=== PATIENT | female | born 1945 | race Caucasian/White ===

== ENCOUNTER 2017-05-21 08:26 | Emergency (ER) | payer MEDICARE, OTHER ==
[~2017-05-21] VITALS: Ht 162.6 cm; Wt 72.6 kg
[~2017-05-21 08:26] MED LIST: ALLO100 PO; Adult Low Dose81 MG PO; CEPH500 PO; CHOL10002 PO; CITA20 PO; ERGO50000 PO; FURO40 PO; HYDACE10B PO; LEVSOD125 PO; NAPR500 PO; OLME20 PO; PARI1 PO; ROSU10TA PO
[2017-05-21] MEDS ORDERED: Sudogest60 MG PO (10:40)
[2017-05-21] MEDS ORDERED: Cheratussin AC118 ML PO (10:40)
[2017-05-21] MEDS ORDERED: Augmentin 875-1 EACH PO (10:40)
== END 2017-05-21 10:45 | disposition home or self-care (01) ==
LOC: ER 08:26
DX: J32.9 Chronic sinusitis, unspecified (principal); I10 Essential (primary) hypertension; M10.9 Gout, unspecified; N19 Unspecified kidney failure; Z79.899 Other long term (current) drug therapy; Z79.82 Long term (current) use of aspirin; Z87.891 Personal history of nicotine dependence
CPT/HCPCS: 71046; 99283

== ENCOUNTER 2020-08-14 06:26 | Day surgery (SDC) | payer MEDICARE, OTHER ==
[~2020-08-14] VITALS: Ht 162.6 cm; Wt 76.0 kg
[~2020-08-14 06:26] MED LIST changes: +AMLO5 PO; +Augmentin 875-1 EACH PO; +BUPR100 PO; +CLON.1 PO; +Cheratussin AC118 ML PO; +LEVSOD100 PO; +LOSA50 PO; +ONDA4ODT MM; +PRAV20 PO; +Rena-Vite Tabl0.8 MG PO; +SODBIC650 PO; +Sudogest60 MG PO
[2020-08-14] MEDS ORDERED: Crestor20 MG PO (07:00)
--- NOTE | 2020-08-14 11:12 | NUR ---
DR GREER AT BEDSIDE SPEAKING WITH PT ABOUT POSSIBLE RX FOR PAIN MEDICATION. PT STATES SHE HAS "BORROWED" PAIN MEDICATION IF NEEDED, TOOK TWO HYDROCODONE YESTERDAY AFTER DIALYSIS FOR PAIN. EDUCATED PATIENT ABOUT THE DANGERS OF TAKING MEDICATIONS WITHOUT A PRESCRIPTION OR INSTRUCTIONS FROM HER PROVIDER.
[2020-08-14] MEDS ORDERED: HYDR1TAB94 PO (11:32)
--- NOTE | 2020-08-14 11:45 | NUR ---
IV DC'D, CATH INTACT. PT GIVEN DC INSTRUCTIONS, FOLLOW UP INFO, VERBALIZED UNDERSTANDING. ABDOMEN SITE SOFT, NO BLEEDING OR DRAINAGE. IS VERY TENDER TO THE TOUCH, DR GREER AWARE. PT OUT TO CAR VIA WHEELCHAIR.
[2020-10-10] MEDS ORDERED: Norco 5-325 Ta1 EACH PO (15:31)
== END 2020-08-14 11:45 | disposition home or self-care (01) ==
LOC: MHTC 06:26
DX: I12.0 Hypertensive chronic kidney disease with stage 5 chronic kidney disease or end stage renal disease (principal); N18.6 End stage renal disease; E03.9 Hypothyroidism, unspecified; E55.9 Vitamin D deficiency, unspecified; E78.00 Pure hypercholesterolemia, unspecified; Z87.891 Personal history of nicotine dependence
CPT/HCPCS: 49418; 76937; 93005; 93010; 99152; 99153; C1750; C1769; C1887; C1894; J0690; J1644; J2250; J3010; J7030; J7040; Q9967

== ENCOUNTER 2020-10-24 09:03 | Day surgery (SDC) | payer MEDICARE, OTHER ==
[~2020-10-24] VITALS: Ht 162.6 cm; Wt 75.0 kg
[~2020-10-24 09:03] MED LIST changes: +Crestor20 MG PO; +HYDR1TAB94 PO; +Norco 5-325 Ta1 EACH PO
--- NOTE | 2020-10-24 14:21 | NUR ---
PT GIVEN TWO NORCO'S FOR ABDOMINAL PAIN. DISCHARGE GONE OVER WITH PT, VERBALIZES UNDERSTANDING. SALINE LOCK REMOVED WITH CATHETER INTACT. PT CALLED AND INSTRUCTED PT READY FOR DISCHARGE. PD CATH SITE DRESSED PRIOR TO PT GETTING DRESSED.
--- NOTE | 2020-10-24 14:32 | NUR ---
PT TO PRIVATE VEHICLE PER W/C.
== END 2020-10-24 14:30 | disposition home or self-care (01) ==
LOC: MHTC 09:03
DX: I12.0 Hypertensive chronic kidney disease with stage 5 chronic kidney disease or end stage renal disease (principal); N18.6 End stage renal disease; E03.9 Hypothyroidism, unspecified; Z79.899 Other long term (current) drug therapy
CPT/HCPCS: 36595; 49418; 49422; 99152; 99153; A9270; C1725; C1750; C1769; C1887; C1894; J0690; J1644; J2250; J3010; J7030; J7040; Q9967

== ENCOUNTER 2020-11-08 15:22 | Emergency (ER) | payer MEDICARE, OTHER ==
[~2020-11-08] VITALS: Ht 165.1 cm; Wt 61.2 kg
[2020-11-08 16:12] LABS: BASOPHILS ABSOLUTE AUTO 0.08 K/mm3 (0.00-0.23); BASOPHILS PERCENT AUTO 1 % (0-2); EOSINOPHILS ABSOLUTE AUTO 0.14 K/mm3 (0.00-0.68); EOSINOPHILS PERCENT AUTO 2 % (0-6); IMMATURE GRAN ABSOLUTE AUTO 0.04 K/mm3 (0.00-0.10); IMMATURE GRAN PERCENT AUTO 1 % (0-1); LYMPHOCYTES ABSOLUTE AUTO 1.54 K/mm3 (0.84-5.20); LYMPHOCYTES PERCENT AUTO 19 % (21-46); MONOCYTES ABSOLUTE AUTO 0.42 K/mm3 (0.16-1.47); MONOCYTES PERCENT AUTO 5 % (4-13); Mean Corpuscular HGB 31.5 pg (26.0-34.0); Mean Corpuscular HGB Conc 33.3 g/dL (31.5-36.5); Mean Corpuscular Volume 95 fL (80-100); Mean Platelet Volume 9.6 fL (9.1-12.4); NEUTROPHILS PERCENT AUTO 73 % (41-73); Platelet Count 282 K/mm3 (150-400); RDW Coefficient Variation 12.8 % (11.7-14.2); RDW Standard Deviation 44.2 fL (35.1-46.3); Red Blood Cell Count 3.17 M/mm3 (3.80-5.20); White Blood Cell Count 8.12 K/mm3 (4.00-11.30)
[2020-11-08 16:36] LABS: Albumin, Blood 3.3 g/dL (3.4-5.0); Albumin/Globulin Ratio 0.8 (0.8-1.8); Bilirubin, Total 0.5 mg/dL (0.1-1.0); Bun/Creatinine Ratio 4.8 (12.0-20.0); Calcium, Blood 8.5 mg/dL (8.5-10.1); Creatinine, Blood 2.31 mg/dL (0.40-1.00); Globulin, Blood 4.1 g/dL (2.2-4.0); Phosphorus, Blood 1.3 mg/dL (2.5-4.9); Potassium, Blood 3.5 mmol/L (3.5-5.5); Total Protein, Blood 7.4 g/dL (6.4-8.2)
== END 2020-11-08 19:29 | disposition home or self-care (01) ==
LOC: ER 15:22
PROVIDERS: Emergency Medicine
DX: R41.0 Disorientation, unspecified (principal); R53.1 Weakness; I10 Essential (primary) hypertension; Z53.21 Procedure and treatment not carried out due to patient leaving prior to being seen by health care provider; Z79.899 Other long term (current) drug therapy
CPT/HCPCS: 70450; 73120; 80053; 83735; 84100; 85025; 93005; 93010; 96374; 99285-25; J2060

== ENCOUNTER 2021-11-10 11:16 | Inpatient (IN) | payer MEDICARE, OTHER ==
[~2021-11-10] VITALS: Ht 162.6 cm; Wt 71.2 kg
[~2021-11-10 11:16] MED LIST changes: -CHOL10002 PO; -Crestor20 MG PO; +VITAMIN D31000 UNI1 PO
[2021-11-10 12:04] LABS: BASOPHILS ABSOLUTE AUTO 0.06 K/mm3 (0.00-0.23); BASOPHILS PERCENT AUTO 1 % (0-2); EOSINOPHILS ABSOLUTE AUTO 0.16 K/mm3 (0.00-0.68); EOSINOPHILS PERCENT AUTO 3 % (0-6); Hematocrit 35.1 % (33.0-51.0); Hemoglobin 11.5 g/dL (11.5-16.0); IMMATURE GRAN ABSOLUTE AUTO 0.04 K/mm3 (0.00-0.10); IMMATURE GRAN PERCENT AUTO 1 % (0-1); LYMPHOCYTES PERCENT AUTO 32 % (21-46); MONOCYTES ABSOLUTE AUTO 0.43 K/mm3 (0.16-1.47); MONOCYTES PERCENT AUTO 7 % (4-13); Mean Corpuscular HGB Conc 32.8 g/dL (31.5-36.5); Mean Corpuscular Volume 95 fL (80-100); Mean Platelet Volume 9.8 fL (9.1-12.4); NEUTROPHILS ABSOLUTE AUTO 3.57 K/mm3 (1.96-9.15); NEUTROPHILS PERCENT AUTO 57 % (41-73); Platelet Count 346 K/mm3 (150-400); RDW Coefficient Variation 13.3 % (11.7-14.2); Red Blood Cell Count 3.71 M/mm3 (3.80-5.20); White Blood Cell Count 6.26 K/mm3 (4.00-11.30)
[2021-11-10 12:35] LABS: Albumin, Blood 3.1 g/dL (3.4-5.0); Albumin/Globulin Ratio 0.8 (0.8-1.8); Bilirubin, Total 0.3 mg/dL (0.1-1.0); Bun/Creatinine Ratio 6.3 (12.0-20.0); Calcium, Blood 12.9 mg/dL (8.5-10.1); Creatinine, Blood 8.79 mg/dL (0.40-1.00); Globulin, Blood 4.1 g/dL (2.2-4.0); Potassium, Blood 3.6 mmol/L (3.5-5.5); Total Protein, Blood 7.2 g/dL (6.4-8.2)
[2021-11-10] MEDS ORDERED: PROZAC20 M9 PO (12:47)
[2021-11-10] MEDS ORDERED: DIAZEPAM2 M2 PO (12:48)
[2021-11-10] MEDS ORDERED: TEMAZEPAM PO (12:50)
[2021-11-10] MEDS ORDERED: LOSARTAN POTASS25 M2 PO (12:51)
[2021-11-10] MEDS ORDERED: KLOR-CON 1010 ME8 PO (12:51)
--- NOTE | 2021-11-10 15:02 | NUR ---
DIALYSIS NURSE PLATE KEEPER TO ED TO OBTAIN PD EFFLUENT SAMPLE. RN UNABLE TO OBTAIN EFFLUENT SAMPLE DUE TO PT PRESENTING WITH DRY BELLY. MANUAL EXCHANGE COMPLETED WITH 1000ML OF 1.5% DIANEAL PER MD ORDER AND DWELL TIME OF 1HR AND 15MINUTES. EFFLUENT SAMPLE COLLECTED, EFFLUENT CLEAR IN APPEARANCE, PT DID C/O OF MODERATE LOWER ABDOMINAL/ PELVIC PAIN AND TOLERATED PROCEDURE WELL OVERALL. SAMPLE SENT FOR CELL COUNT AND DIFFERENTIAL. RESULTS PENDING AND WILL BE REPORTED TO DR. MONTANA BY ED DIRECTLY.
[2021-11-10 15:08] LABS: Automated BF WBC Count 0.003 K/mm3 (0-999); Body Fluid WBC Count 3 /mm3 (0-999)
[2021-11-10 15:26] LABS: Protein, Body Fluid 0.1 g/dL
[2021-11-10 15:41] LABS: Color, Body Fluid No color (None-Yellow); RBC Count, Body Fluid 1 /mm3 (0-0)
[2021-11-10 15:42] LABS: Appearance, Body Fluid Clear (Clear)
[2021-11-10 16:20] LABS: Total Cell Count, Body Fluid 100
--- NOTE | 2021-11-10 19:25 | NUR ---
MS KO WAS ADMITTED TO MEDICAL UNIT FROM ER AROUND 1810HRS. SHE STOOD AND TRANSFERED INTO THE HOSPITAL BED, STEADY ON TRANSFER. MAIN C/O HEADACHE 11/17 ON ARRIVAL AND REQUESTING TYLENOL. DR WHITNEY CALLED AND TYLENOL ORDER OBTAINED. PT GOOD HISTORIAN, BUT SHE WAS NOT 100% SURE OF HER HOME MEDICATIONS, SAID THEY ARE CHANGED FREQUENTLY. SHE SAID SHE USUALLY VOIDS ONCE A DAY, HAS NOT VOIDED SINCE BEING AT [facility] PER REPORT. PT REPORTS 10LB WEIGHT LOSS IN LAST MONTH DUE TO POOR APPETITE. PT SAID SHE HAS A HISTORY OF OCCASIONAL SEIZURES, LAST ONE PERHAPS 6 MONTHS AGO, BUT NOT ON SZ MEDS, NOT CLEAR IF IT IS DIAGNOSED SEIZURES. PERITONEAL DIALYSIS CATHETER IN PLACE, PT NORMALLY DOES HOME PD EACH EVENING. OPTOMECHANICAL TECHNICIAN INFORMED DOCK SUPERVISOR OF PT'S ADMISSION PER REPORT. BED LOW, CALL LIGHT IN REACH.
--- NOTE | 2021-11-10 21:05 | NUR ---
DIALYSIS NOTE CCPD TX INITIATED PER P&P, PT PROGRAMED WITH HOME RX PER DR. MONTANA. 9HRS, 8400 TOTAL VOLUME (2.5% DIANEAL), 4 EXCHANGES OF 2100 WITH A DWELL TIME OF 1HR, 48 MINUTES, 0 LAST FILL. LMQ PD CATH EXIT SITE WNL, NO REDNESS, NO DRAINAGE. PT TOLERATED PROCEDURE WELL. REPORT GIVEN TO BEDSIDE RN AND CONTACT INFO FOR ONCALL PATCHER BOWLING BALL FOR ANY QUESTIONS OR CONCERNS DURING NIGHT.
[2021-11-10] MEDS ORDERED: DIAZEPAM5 M2 PO (22:04)
[2021-11-11 06:16] LABS: Hematocrit 34.7 % (33.0-51.0); Hemoglobin 11.4 g/dL (11.5-16.0)
--- NOTE | 2021-11-11 06:30 | NUR ---
DIALYSIS NOTE CCPD TX COMPLETED AND PT DISCONNECTED PER P&P. PD EFFLUENT CLEAR, I-[id number], TUF-[id number], AVG DWELL 1:16, LOST DWELL 2:07, 3 LOW DRAIN VOLUME ALARMS T/O NIGHT. PT TOLERATED TX WELL AND REPORTS SHE WAS ALBLE TO REST DURING NIGHT.
[2021-11-11 06:35] LABS: Magnesium, Blood 2.4 mg/dL (1.6-2.4)
[2021-11-11 06:40] LABS: Anion Gap 12 mmol/L (6-16); Blood Urea Nitrogen 51 mg/dL (8-24); Bun/Creatinine Ratio 6.3 (12.0-20.0); CO2, Blood 27 mmol/L (21-32); Calcium, Blood 11.8 mg/dL (8.5-10.1); Chloride, Blood 100 mmol/L (98-108); Creatinine, Blood 8.05 mg/dL (0.40-1.00); Glomerular Filtration Rate 5 (60-); Glucose, Blood 114 mg/dL (70-99); Phosphorus, Blood 4.6 mg/dL (2.5-4.9); Potassium, Blood 3.3 mmol/L (3.5-5.5); Sodium, Blood 139 mmol/L (136-145)
--- NOTE | 2021-11-11 07:23 | NUR ---
SHIFT SUMMARY AOX4. DX c HYPERCALCEMIA. PT REPORTS MARTINI, MEDICATED 1X c TYLENOL & STATES MILD RELIEF @HS HOWEVER THIS AM PT REPORTS MARTINI HASNT GONE AWAY, DAY SHIFT NURSE INFORMED. RECIEVED PERITONEAL DIALYSIS T/O NIGHT. 24 HR URINE STARTED 2230. ABD DISTENDED. DENIES N/V. VSS. CALL LIGHT IN REACH.
--- NOTE | 2021-11-11 13:08 | NUR ---
DIALYSIS NOTE CCPD TX INITIATED PER P&P, PT PROGRAMED WITH HOME RX PER DR. MONTANA. 9HRS, 8400 TOTAL VOLUME (2.5% DIANEAL), 4 EXCHANGES OF 2100 WITH A DWELL TIME OF 1HR, 48 MINUTES, 0 LAST FILL. LMQ PD CATH EXIT SITE WNL, NO REDNESS, NO DRAINAGE. PT TOLERATED PROCEDURE WELL. REPORT GIVEN TO BEDSIDE RN AND CONTACT INFO FOR ONCALL IT SECURITY ARCHITECT FOR ANY QUESTIONS OR CONCERNS DURING NIGHT.
--- NOTE | 2021-11-11 20:05 | NUR ---
SUMMARY- PT ALERT AND ORIENTED. ALL DAY SHE STATES SHE DOESN'T FEEL GOOD. HEADACHE NOT RELEIVED BY TYLENOL EARLIER TODAY, INCREASED AMOUNT OF TYLENOL, TURNED OFF ALL THE LIGHTS AND SHUT OUT LIGHT FOR PT TO NAP THIS AFTERNOON. APPEARED TO SLEEP FROM 1330 UNTIL 1730, AWOKEN EASY TO STIM. P. DIALYSIS STARTED 1330 BEFORE RN WENT HOME. PT HAS NO APPETITE AND ONLY HAD A FEW BITES OF FOOD ALL DAY. ENC TO DRINK SMALL AMOUNTS OF FLUIDS CONSISTANTLY. 1800 PT STATES SHE DOESN'T KNOW IF HEADACHE WENT AWAY, STILL IN POSITION, ATTEMPTING SLEEP CONNECTED TO DIALYSIS. VSS. REPORTED TO NOC RN.
[2021-11-11 23:14] LABS: Protein, Urine Quantitative 85.9 mg/dL (0.0-11.9)
--- NOTE | 2021-11-12 02:22 | NUR ---
EMESIS/PAIN *LATE ENTRY* AROUND 2229 PT REPORTED EXTREME HEADACHE & HAD EPISODE 300ML DARK BROWN EMESIS, MEDICATED c 4MG IV ZOFRAN. BY 0000 PT GAGGING/DRY HEAVING & HAVING NAUSEA AGAIN. PT REPORTS INABILITY TO EAT OR TOLERATE MUCH PO INTAKE INCLUDING WATER, 8/10 BURNING MID ABD PAIN, SENSITIVITY TO LIGHT, SHIVERING-HOWEVER AFEBRILE, VSS, 10/10 HEADACHE & HAD ANOTHER EPISODE 300ML CLEAR/YELLOW EMESIS c BROWN SPECKS. INFORMED DR MICHAELS, HE ORDERED REGLAN IV, FENANYL IV & CT ABD/PELVIS. SINCE GIVING REGLAN PT HASNT HAD ANY FURTHER EMESIS JUST DRY HEAVING & GAGGING. MEDICATED c 50MCG FENANYL & PT REPORTED MILD RELIEF FROM ABD & HEAD PAIN, WILL MONITOR.
[2021-11-12 05:56] LABS: Hematocrit 35.4 % (33.0-51.0); Hemoglobin 11.6 g/dL (11.5-16.0)
[2021-11-12 06:19] LABS: Anion Gap 11 mmol/L (6-16); Blood Urea Nitrogen 48 mg/dL (8-24); Bun/Creatinine Ratio 5.6 (12.0-20.0); CO2, Blood 26 mmol/L (21-32); Calcium, Blood 11.1 mg/dL (8.5-10.1); Chloride, Blood 102 mmol/L (98-108); Creatinine, Blood 8.52 mg/dL (0.40-1.00); Glomerular Filtration Rate 4 (60-); Glucose, Blood 102 mg/dL (70-99); Phosphorus, Blood 4.8 mg/dL (2.5-4.9); Potassium, Blood 3.6 mmol/L (3.5-5.5); Sodium, Blood 139 mmol/L (136-145)
--- NOTE | 2021-11-12 06:43 | NUR ---
SHIFT SUMMARY AOX4. VSS. HAD A ROUGH NIGHT, VERY NAUSEATED, DRY HEAVING, GAGGING c 2 EPISODES 300ML EMESIS-1ST EMESIS WAS BROWN IN COLOR & 2ND WAS CLEAR YELLOW c BROWN SPECKS. MEDICATED 1X c ZOFRAN & 1X c REGLAN. REPORTS 8-1010 BURNING ABD PAIN. HYPOACTIVE BT. TENDER, GAURDED MILD DISTENDED ABD. HAS NO APPETITE, CANT TOLERATE PO INTAKE, REPORTS FEELING NAUSEATED EVEN AFTER DRINKIN WATER. ABD/PELVIS CT ORDERED & DONE LAST NIGHT PER DR MICHAELS ORDERS. PT HAS LIGHT SENSITIVITY. 10/10 HEADACHE, UNABLE TO TOLERATE PO, SO DR MICHAELS ORDERED IV FENTANYL & PT FINALLY ABLE TO GET REST. CRITICAL CREATININE @8.45, INFORMED DR MONTANA. CALL LIGHT IN REACH.
--- NOTE | 2021-11-12 07:11 | NUR ---
PATIENT RESTNG QUIETLY UPON ENTERING ROOM THIS MORNING. WAKENS EASILY TO FULL ORIENTATION. OVERNIGHT THERAPY COMPLETE ORDERED. EFFLUENT VERY LIGHT TAYLOR / CLEAR. CYCLER STRIPPED AND CLEANED. PATIENT VERBALIZED NO COMPLAINT AT THIS TIME.
--- NOTE | 2021-11-12 14:59 | NUR ---
PAEIENT AWAKE / ALERT / ORIENTED / MOBILE IN ROOM. OVERNIGHT CCPD SET UP PER ORDERS. CYCLER STRUNG, PRIMED AND PROGRAMMED. MACHINE MONITORED UNTIL PRIME COMPLETE. PT WILL BE CONNECTED AND THERAPY STARTED LATER THIS EVENING. EXIT SITE CARE DONE. NEW STERILE DRESSING APPLIED. SITE DRY, TIGHT, NON-TENDER. PT COMFORTABLE IN BED - VERB NO NEEDS AT THIS TIME.
--- NOTE | 2021-11-12 20:26 | NUR ---
SUMMARY- PT A/O X4. STATES SHE FEELS TERRIBLE- HEADACHE THAT WONT GO AWAY. NO APPETITE AND FOOD IS REPULSIVE TO HER. TAKING IN CLEARS LIQUIDS EARLIER PART OF THE DAY, BUT PO INCREASINGLY INTOLERABLE THE DAY PROGRESSED. BEGAN HAVING EMISIS WITH ANY PO INTAKE. PT STARTED ON NS 100ML HR THIS AM. CHANGED TO NPO EXCEPT ICE. CALLED DR WHITNEY 1800 AND GOT ORDER TO CONT IVF THROUGH THE NIGHT AND OBTAIN ABD XRAY. PT DENIES STOMACH PAIN, DENIES CRAMPING. THOUGHT MAYBE SHE WAS CONSTIPATED, BUT CT DID NOT SHOW IMPACTION. PER. DIALYSIS CONNECTED APPROX 1800. PT IS MORE WEAK AND SHAKI. INSTRUCTED TO CALL ANYTIME SHE GETS UPL.
--- NOTE | 2021-11-13 06:35 | NUR ---
SHIFT SUMMARY PT REPORTS H/A AT THE BEGINNING OF SHIFT. ONE TIME MORPHINE GIVEN, H/A RESOLVED. PT ALSO C/O NAUSEA, DAY SHIFT MEDICATED HER FOR ZOFRAN AND PHENEGRAN BEFORE SHIFT CHANGED WHICH RESOLVED AFTER COUPLE HOURSE. PT SLEPT GOOD OVERNIGHT. PT ON PERITONEAL DIALYSIS LAST NIGHT. BT PRESENT. NPO, OK FOR SIPS AND ICE CHIPS. TOLERATING IT WELL THIS MORNING. PT DENIES ABD PAIN AND VOMITING. PT ALSO APPEARS TO BE SHAKY AT THE BEGINNING OF SHIFT, WHICH GOT BETTER AFTER HEADACHE AND NAUSEA RESOLVED. AOX4. CALL LIGHT WITHIN REACH. WILL PROVIDE REPORT TO ONCOMING NURSE.
[2021-11-13 06:38] LABS: BASOPHILS ABSOLUTE AUTO 0.05 K/mm3 (0.00-0.23); BASOPHILS PERCENT AUTO 1 % (0-2); EOSINOPHILS ABSOLUTE AUTO 0.08 K/mm3 (0.00-0.68); EOSINOPHILS PERCENT AUTO 1 % (0-6); Hemoglobin 11.3 g/dL (11.5-16.0); IMMATURE GRAN ABSOLUTE AUTO 0.03 K/mm3 (0.00-0.10); IMMATURE GRAN PERCENT AUTO 0 % (0-1); LYMPHOCYTES PERCENT AUTO 36 % (21-46); MONOCYTES PERCENT AUTO 9 % (4-13); Mean Corpuscular HGB Conc 32.3 g/dL (31.5-36.5); Mean Corpuscular Volume 96 fL (80-100); Mean Platelet Volume 9.9 fL (9.1-12.4); NEUTROPHILS ABSOLUTE AUTO 3.62 K/mm3 (1.96-9.15); NEUTROPHILS PERCENT AUTO 53 % (41-73); Platelet Count 314 K/mm3 (150-400); RDW Coefficient Variation 13.7 % (11.7-14.2); Red Blood Cell Count 3.65 M/mm3 (3.80-5.20); White Blood Cell Count 6.88 K/mm3 (4.00-11.30)
--- NOTE | 2021-11-13 06:47 | NUR ---
DR. MONTANA IN ROOM TO SEE PT
[2021-11-13 07:07] LABS: Magnesium, Blood 2.1 mg/dL (1.6-2.4)
[2021-11-13 07:15] LABS: Albumin, Blood 2.9 g/dL (3.4-5.0); Albumin/Globulin Ratio 0.7 (0.8-1.8); Bilirubin, Total 0.2 mg/dL (0.1-1.0); Bun/Creatinine Ratio 4.9 (12.0-20.0); Calcium, Blood 10.1 mg/dL (8.5-10.1); Creatinine, Blood 8.4 mg/dL (0.40-1.00); Globulin, Blood 3.9 g/dL (2.2-4.0); Potassium, Blood 3.2 mmol/L (3.5-5.5); Total Protein, Blood 6.8 g/dL (6.4-8.2)
--- NOTE | 2021-11-13 09:55 | NUR ---
DIALYSIS-PD PT UP TO WILNER MONTENEGRO. DC'D TX FROM PT PER PROTOCAL. ID 0 ML, UF [id number] ML. SITE CLEAR, FLUID VERY CLEAR. NO C/O FROM PT AT THIS TIME.
--- NOTE | 2021-11-13 14:27 | NUR ---
PATIENT AWAKE/ALERT/ORIENTED/MOBILE IN ROON. OVERNIGHT CCPD SET UP PER MD ORDERS. CYCLER STRUNG, PRIMED AND PROGRAMMED. MACHINE MONITORED UNTIL PRIME COMPLETE. PT WILL BE CONNECTED AND THERAPY STARTED LATER THIS EVENING. EXIT SITE CARE DONE. NEW STERILE DRESSING APPLIED. SITE DRY. TIGHT, NON-TENDER. PT COMFORTABLE IN BED - OFFERS NO COMPLAINTS OR NEEDS AT THIS TIME. SELWYN
--- NOTE | 2021-11-13 18:06 | NUR ---
PT REQUEST INCREASE FROM ICE. DR BATISTA CLEAR LIQUID DIET. GO EASY. PT DOES HAVE B/T X4 STATES NO GAS OR B/M YET
--- NOTE | 2021-11-13 18:09 | NUR ---
PP PLEASANT TODAY. NO C/O OF PAIN. TREATED FOR NAUSEA THIS AM. PT DID DESIRE TO START CLEAR LIQUID DIET. DR AGREED. GO EASY. DAUGHTER IN ROOM. NO OTHER CONCERNS NOTED. NAUSEA BETTER THIS ALBERTA. JAYY DIAL STARTED THIS ALBERTA. BED IN LOW POSITION, CALL LITE IN REACH, CALLS APPROP
--- NOTE | 2021-11-14 04:25 | NUR ---
SHIFT SUMMARY NO ACUTE CHANGES OVERNIGHT. MONITORING PO INTAKE AND NAUSEA T/O SHIFT. PT TOLERATING CLEAR LIQ DIET, BUT HAS LITTLE APPETITE. PT DENIES NAUSEA AND VOMITING. DID NOT REQUIRE ANTIEMETIC DRUGS T/O SHIFT. PT IS SBA IN ROOM FOR SAFETY, INTERMITTENTLY HAS SOME SHAKINESS. VSS. DENIES HEADACHE, DIZZINESS, NUMBNESS AND TINGLING SENSATION. VSS. DENIES CHEST PAIN AND SOB. PT ON PERITONEAL DIALYSIS OVERNIGHT. VOIDED BEFORE BED. IV FLUIDS NS INFUSING AT 50MLS/HR. CALL LIGHT WITHIN REACH. WILL CONTINUE TO MONITOR AND WILL PROVIDE REPORT TO ONCOMING NURSE.
[2021-11-14 05:42] LABS: Hematocrit 30.6 % (33.0-51.0); Hemoglobin 9.9 g/dL (11.5-16.0)
[2021-11-14 06:08] LABS: Magnesium, Blood 1.9 mg/dL (1.6-2.4)
[2021-11-14 06:12] LABS: Albumin, Blood 2.6 g/dL (3.4-5.0); Anion Gap 8 mmol/L (6-16); Blood Urea Nitrogen 37 mg/dL (8-24); Bun/Creatinine Ratio 4.4 (12.0-20.0); CO2, Blood 28 mmol/L (21-32); Calcium, Blood 9.4 mg/dL (8.5-10.1); Chloride, Blood 105 mmol/L (98-108); Creatinine, Blood 8.33 mg/dL (0.40-1.00); Glomerular Filtration Rate 5 (60-); Glucose, Blood 91 mg/dL (70-99); Phosphorus, Blood 4.6 mg/dL (2.5-4.9); Sodium, Blood 141 mmol/L (136-145)
--- NOTE | 2021-11-14 06:48 | NUR ---
PATIENT AWAKE, ALERT, ORIENTED. VERB IMPROVED STATUS WITH DECREASED NAUSEA AND TOLERATING LIGHT FOODS. NO DISCOMFRORT REPORTED. OVERNIGHT CCPD COMPLETED ORDERED. EFFLUENT VERY LIGHT TAYLOR / CLEAR. CYCLER STRIPPED AND CLEANED. DR MONTANA CONSULTED VIA PHONE FOR NEW ORDERS / PLAN OF CARE.
[2021-11-14 12:11] LABS: IMMUNOGLOBULIN A, QN, SERUM 125 mg/dL (64-422); IMMUNOGLOBULIN G, QN, SERUM 966 mg/dL (586-1602); IMMUNOGLOBULIN M, QN, SERUM 199 mg/dL (26-217)
--- NOTE | 2021-11-14 18:47 | NUR ---
DAY SHIFT SUMMARY PLEASANT 76 YR OLD FEMALE PT WITH HYPERCALCEMIA. CALL LIGHT WITHIN REACH AND ABLE TO CALL APPROPRIATELY. BOWEL CARE ORDERED, PT IS NOT IN AGREEMENT FOR BOWEL CARE, STATES SHE HAS BEEN HAVING LIQUID STOOLS, EDUCATED PT ON POSSIBLE IMPACTION. TRACKING FOR SEPSIS. DIALYSIS AT NIGHT WITH PD. DIALYSIS NURSE INITIATED PD FOR TONIGHT THIS SHIFT.
--- NOTE | 2021-11-14 19:03 | NUR ---
PT AWAKE ALERT, VERB NO DISCOMFORT. NO NAUSEA. EATTING BETTER TODAY. CCPD SET UP PER ORDERS. CYCLER STRUNG, PROMMED AND PROGRAMMED. WHEN PRIME COMPLETE, PT AESEPTICALLY CONNECTED AND TX STARTED. EXIT SITE CARE DONE. NEW STERILE DRESSING APPLIED WITH 2 STRAIN RELIEFS. MED FLOOR STAFF AWARE OF OVERNIGHT THERAPY IN [facility].
[2021-11-15 05:34] LABS: Hematocrit 31.8 % (33.0-51.0); Hemoglobin 10.5 g/dL (11.5-16.0)
[2021-11-15 05:54] LABS: Albumin, Blood 2.7 g/dL (3.4-5.0); Anion Gap 10 mmol/L (6-16); Blood Urea Nitrogen 32 mg/dL (8-24); Bun/Creatinine Ratio 4.2 (12.0-20.0); CO2, Blood 25 mmol/L (21-32); Calcium, Blood 9.1 mg/dL (8.5-10.1); Chloride, Blood 104 mmol/L (98-108); Creatinine, Blood 7.63 mg/dL (0.40-1.00); Glomerular Filtration Rate 5 (60-); Glucose, Blood 92 mg/dL (70-99); Magnesium, Blood 1.9 mg/dL (1.6-2.4); Phosphorus, Blood 4.2 mg/dL (2.5-4.9); Potassium, Blood 3.1 mmol/L (3.5-5.5); Sodium, Blood 139 mmol/L (136-145)
--- NOTE | 2021-11-15 07:28 | NUR ---
PT RELUCTANT TO TAKE BOWEL MEDS STATING SHE HAS BEEN HAVING LIQUID STOOLS. EXPLAINED TO PT THAT PER REPORT SHE HAD A SCAN RECENTLY THAT SHOWED SHE WAS IMPACTED AND THAT HAVING LIQUID STOOLS DID NOT MEAN HER BOWEL WAS FULLY EMPTIED. PT STATING SHE IS AFRAID OF HAVING ACIDENTS. SUGESTED TO PT THAT WE HAVE BSC IN CASE SHE NEEDS TO GO QUICKLY AND PT ALSO REQUESTING PULL UPS. PT AGREED TO TAKE ALL BOWEL MEDS. PD SET UP BY ICE HOUSE SUPERVISOR.
[2021-11-15 11:12] LABS: M-SPIKE, % Not Observed % (Not Observed); PROTEIN,TOTAL,URINE 62.3 mg/dL (Not Estab.)
--- NOTE | 2021-11-15 11:15 | NUR ---
DIALYSIS - PD TX DC'ED PER PROTOCAL. ID [id number], UF [id number]. PT SAYS SHE FEELS ALOT BETTER. SHE LOOKS BETTER. HOPES TO GO HOME SOON. FLUID AND SITE CLEAR.
--- NOTE | 2021-11-15 16:59 | NUR ---
DAY SHIFT SUMMARY 76 YR OLD FEMALE WITH HYPERCALCEMIA WITH FECAL IMPACTION. PT ON CLEAR LIQUID DIET, ON RA AND ABLE TO TAKE MEDS WHOLE. PT WITH PERITONEAL DIALYSIS AT NIGHT, DIALYSIS NURSE TO COME SET PT UP AND INTIATE DIALYSIS FOR NIGHT. PT IS INDEPENDENT IN ROOM WITH FWW, A/O. NO ACUTE CHANGES THIS SHIFT. CALL LIGHT WITHIN REACH AND ABLE TO CALL APPROPRIATE.
--- NOTE | 2021-11-15 19:22 | NUR ---
DIALYSIS - PD TOOK MACHINE AND SUPPLIES TO PT'S ROOM. WHEN MACHINE READY CONNECTED HER TO TX PER PROTOCAL. LOOKED AT HER DRESSING, WHICH WAS CLEAN AND DRY. ASKED IF SHE WANTED IT CHANGED. SHE SAID NO. LEFT A DRESSING IN CASE SHE SHOWERS. PT ANXIOUS TO GO HOME. TRYING TO RESOLVE A BOWEL IMPACTION PROBLEM.
[2021-11-16 05:38] LABS: BASOPHILS ABSOLUTE AUTO 0.05 K/mm3 (0.00-0.23); BASOPHILS PERCENT AUTO 1 % (0-2); EOSINOPHILS ABSOLUTE AUTO 0.16 K/mm3 (0.00-0.68); EOSINOPHILS PERCENT AUTO 3 % (0-6); Hematocrit 28.8 % (33.0-51.0); Hemoglobin 9.3 g/dL (11.5-16.0); IMMATURE GRAN ABSOLUTE AUTO 0.03 K/mm3 (0.00-0.10); IMMATURE GRAN PERCENT AUTO 1 % (0-1); LYMPHOCYTES ABSOLUTE AUTO 3.05 K/mm3 (0.84-5.20); LYMPHOCYTES PERCENT AUTO 54 % (21-46); MONOCYTES ABSOLUTE AUTO 0.52 K/mm3 (0.16-1.47); MONOCYTES PERCENT AUTO 9 % (4-13); Mean Corpuscular HGB Conc 32.3 g/dL (31.5-36.5); Mean Corpuscular Volume 96 fL (80-100); Mean Platelet Volume 10.5 fL (9.1-12.4); NEUTROPHILS ABSOLUTE AUTO 1.81 K/mm3 (1.96-9.15); NEUTROPHILS PERCENT AUTO 32 % (41-73); Platelet Count 245 K/mm3 (150-400); RDW Coefficient Variation 13.7 % (11.7-14.2); RDW Standard Deviation 48.4 fL (35.1-46.3); White Blood Cell Count 5.62 K/mm3 (4.00-11.30)
--- NOTE | 2021-11-16 06:10 | NUR ---
SHIFT SUMMARY PATIENT ALERT AND ORIENTED. MEDICATED PER EMAR FOR NAUSEA. NO ACUTE ISSUES NOTED OVERNIGHT. CALL LIGHT WITHIN REACH. REPORT GIVEN TO ONCOMING RN.
[2021-11-16 06:17] LABS: Magnesium, Blood 1.5 mg/dL (1.6-2.4)
[2021-11-16 06:18] LABS: Albumin, Blood 2.3 g/dL (3.4-5.0); Albumin/Globulin Ratio 0.8 (0.8-1.8); Bilirubin, Total 0.2 mg/dL (0.1-1.0); Calcium, Blood 8.3 mg/dL (8.5-10.1); Creatinine, Blood 7.22 mg/dL (0.40-1.00); Phosphorus, Blood 4.1 mg/dL (2.5-4.9); Potassium, Blood 3.3 mmol/L (3.5-5.5); Total Protein, Blood 5.3 g/dL (6.4-8.2)
--- NOTE | 2021-11-16 06:49 | NUR ---
MS RESTING QUIETLY WHEN ENTERING ROOM THIS AM. WAKENS EASILY FULL ORIENT. OVERNIGHT CCPD COMPLETED ORDERED. PT AESEPTICALLY DISCONNECTED. CYCLER STRIPPED AND CLEANED. DR TINSLEY CONSULTED VIA PHONE FOR NEW ORDERS / PLAN OF CARE.
--- NOTE | 2021-11-16 07:16 | NUR ---
DR MONTANA IN ROOM. REQUEST POTASSIUM CHOLRIDE 20 MEQ, IV X1 MAG SULFATE 1 GRAM IV X1
--- NOTE | 2021-11-16 18:04 | NUR ---
PT SLIGHT IMPROVEMENT TODAY. DID GET UP AND WALK POWER LOOP TWO DIFFERENT TIMES TODAY. SPOKE TO DR BRAUN. PT WANTS TO EAT SOME. DR AGREED TO MOVE TO SOFT BITE DIET. PT ATE SOME CHICKEN NUGGETS THIS NOON TIME. STATES HAS HAD SEVERAL LOOSE DIARRHEA STOOLS. STATES HAD SOME SMALL CHUNKY PIECES TODAY. IS BEGINNING TO EAT A LITTLE. STATES WANTS TO GET BETTER AND GO HOME. DID MEDICATE WITHI REGLAN TODAY. K+ WAS ADRESSED THIS AM. DOES PERITONEAL DIALYSIS EVERY EVENING. NO OTHER CONCERNS NOTED TODAY. BED IN LOW POSITION, CALL LITE IN REACH, CALLS APPROP
--- NOTE | 2021-11-16 18:19 | NUR ---
DIALYSIS PD CONNECTED TO TX AT 1745. PT HAD BEEN UP TO BR. SNACKING ON A BISQUIT. THIS TIME. PROGRAM TOTAL VOLUME 50142, TX TIME 10:30, FILL 2100, LF 200, CYCLES 5, DWELL TIME 99 MIN. NO C/O AT THIS TIME. PT STATES SHE WILL NEVER GO BACK ON HD. THIS IS THE SECOND TIME SHE HAS TOLD ME THIS.
[2021-11-17 06:01] LABS: Hematocrit 32.9 % (33.0-51.0); Hemoglobin 10.4 g/dL (11.5-16.0)
[2021-11-17 06:18] LABS: Albumin, Blood 2.5 g/dL (3.4-5.0); Anion Gap 9 mmol/L (6-16); Blood Urea Nitrogen 25 mg/dL (8-24); Bun/Creatinine Ratio 3.6 (12.0-20.0); CO2, Blood 23 mmol/L (21-32); Calcium, Blood 8.3 mg/dL (8.5-10.1); Chloride, Blood 108 mmol/L (98-108); Creatinine, Blood 6.87 mg/dL (0.40-1.00); Glomerular Filtration Rate 6 (60-); Glucose, Blood 83 mg/dL (70-99); Magnesium, Blood 1.9 mg/dL (1.6-2.4); Phosphorus, Blood 3.7 mg/dL (2.5-4.9); Potassium, Blood 3.9 mmol/L (3.5-5.5); Sodium, Blood 140 mmol/L (136-145)
--- NOTE | 2021-11-17 07:18 | NUR ---
PATIENT AWAKE/ ALERT AND RESTING IN BED. OVERNIGHT CCPD COMPLETED ORDERED. PATIENT DISCONNECTED HERSELF THIS MORNING. CYCLER STRIPPED AND CLEANED. DR MONTANA CONTACTED VIA PHONE FOR ORDERS / PLAN OF CARE.
--- NOTE | 2021-11-17 07:47 | NUR ---
PT C/O HEADACHE AND MEDICATED WITH TYLENOL. PT DID NOT WANT HER BOWEL CARE SHE STATED SHE HAD SEVERAL LIQUID BMS THROUGHOUT THE DAY. BOWEL SOUNDS PRESENT. PT ON PD DIALYSIS.
--- NOTE | 2021-11-17 09:00 | NUR ---
PT PLEASANT TALKATIVE. TOOK SHOWER, STATES FEELING BETTER. A/O X3. H/R REG, NO MURMUR NOTED. NO TELE. LUNGS CLEAR, RESP EASY, UNLABORED ON R/A. BT X4 LAST BM THIS AM. WATERY AND SMALL CHUNKY. BROWN. LOOKS LIGHTLY FORMED SOFT. VOIDS OLIGURIC. ON PERITONEAL DIALYSIS. STATES WALKED POWER LOOP X3 YEST. BED IN LOW POSITIOIN, CALL LITE IN REACH, CALLS APPROP
--- NOTE | 2021-11-17 12:23 | NUR ---
SPOKE TO DR SOMMERS, DISCUSSED PT FEELS BETTER TO POSS HOME TODAY. HE LIKE TO SEE IF STOOLS SLOWING, STOP MIRALAX. SEE IF ABD PAIN TOLERABLE. AND FOOD INTAKE ACCEPTABLE. WILL CONSIDER D/C FOR TODAY
--- NOTE | 2021-11-17 14:42 | NUR ---
PT REPORTS 3 WATERY B/M THIS DAY SO FAR. CONTIINUES TO HAVE SOME UNFORMED STOOL IN THE MIX. STATES SOME ABD PAIN WITH EATING TODAY. IS CONCERNED TO GET A BOWEL BLOCKAGE HAS IN THE PAST. DR CARY WILL SEE PT LATER TODAY. TOLD HER TO TALK TO DR WHEN IN WITH CONCERNS.
--- NOTE | 2021-11-17 17:36 | NUR ---
SPOKE TO PT. THEY AGREED SHE TO STAY ONE MORE DAY. DR IS LOOKING TO SEE, MAY GET XRAY OF ABD TOMORROW. PT STATES SOME PAIN AFTER EATING, STATES IS OKAY. PT HAD 4 LOOSE STOOL WITH SOME UNFORMED STOOL IN BOTTOM OF COMMODE TODAY. HER CONCERNS SEEM TO BE IF HAS BOWEL BLOCKAGE. DR BRAUN STATES TO PT HE SUSPECTS NOT. NO OTHER CONCERNS NOTED. BED IN LOW POSITION, CALL LITE IN REACH, CALLS APPROP
--- NOTE | 2021-11-17 18:45 | NUR ---
PATIENT MUCH BETTER TODAY. UP AND MOBILE IN ROOM. ANTICIPATING DC TOMORROW. CYCLER STRUNG, PRIMED AND PROGRAMMED PER ORDERS. PATIENT AESEPTICALLY CONNECTED AND THERAPY STARTED WHEN PRIME COMPLETED. EXIT SITE CARE DONE. SITE DRY, TIGHT, NON-TENDER, VERY WELL HEALED. THERAPY MONITORED THROUGH START OF FILL #1. NO DISCOMFORT REPORTED. MED FLOOR STAFF AWARE OF OVERNIGHT THERAPY IN PROGRESS.
[2021-11-18 05:38] LABS: BASOPHILS ABSOLUTE AUTO 0.06 K/mm3 (0.00-0.23); BASOPHILS PERCENT AUTO 1 % (0-2); EOSINOPHILS ABSOLUTE AUTO 0.21 K/mm3 (0.00-0.68); EOSINOPHILS PERCENT AUTO 4 % (0-6); Hematocrit 28.4 % (33.0-51.0); Hemoglobin 9.2 g/dL (11.5-16.0); IMMATURE GRAN ABSOLUTE AUTO 0.01 K/mm3 (0.00-0.10); IMMATURE GRAN PERCENT AUTO 0 % (0-1); LYMPHOCYTES ABSOLUTE AUTO 3.21 K/mm3 (0.84-5.20); LYMPHOCYTES PERCENT AUTO 54 % (21-46); MONOCYTES ABSOLUTE AUTO 0.55 K/mm3 (0.16-1.47); MONOCYTES PERCENT AUTO 9 % (4-13); Mean Corpuscular HGB Conc 32.4 g/dL (31.5-36.5); Mean Corpuscular Volume 96 fL (80-100); Mean Platelet Volume 10.5 fL (9.1-12.4); NEUTROPHILS ABSOLUTE AUTO 1.89 K/mm3 (1.96-9.15); NEUTROPHILS PERCENT AUTO 32 % (41-73); Platelet Count 242 K/mm3 (150-400); RDW Standard Deviation 49.2 fL (35.1-46.3); Red Blood Cell Count 2.97 M/mm3 (3.80-5.20); White Blood Cell Count 5.93 K/mm3 (4.00-11.30)
[2021-11-18 06:04] LABS: Albumin, Blood 2.4 g/dL (3.4-5.0); Albumin/Globulin Ratio 0.8 (0.8-1.8); Bilirubin, Total 0.3 mg/dL (0.1-1.0); Bun/Creatinine Ratio 3.7 (12.0-20.0); Calcium, Blood 8.1 mg/dL (8.5-10.1); Creatinine, Blood 6.73 mg/dL (0.40-1.00); Globulin, Blood 3.1 g/dL (2.2-4.0); Magnesium, Blood 1.9 mg/dL (1.6-2.4); Phosphorus, Blood 4.1 mg/dL (2.5-4.9); Potassium, Blood 3.9 mmol/L (3.5-5.5); Total Protein, Blood 5.5 g/dL (6.4-8.2)
--- NOTE | 2021-11-18 06:26 | NUR ---
OVERNIGHT PT WITH NO NEW COMPLAINS. REQUESTED MELATONIN STATED THE PREVIOUS NIGHT SHE HAD VERY POOR SLEEP. PD SET UP BY METALWORKING SPECIALIST AND PT SELF MANAGES DURING THE NIGHT. PT VERY EAGER TO GO HOME AND STATING THAT SHE IS "GOING HOME TODAY." ABDOMEN NON TENDER AND HYPER-BOWEL SOUNDS PRESENT. PT INDEPENDENT IN ROOM WITH STEADY GAIT.
--- NOTE | 2021-11-18 06:46 | NUR ---
PATIENT AWAKE, ALERT. NO VERB COMPLAINT. OVERNIGHT CCPD COMPLETED ORDERED. PT AESEPTICALLY DISCONNECTED AND CAPPED. CYCLER STRIPPED AND CLEANED. DR MONTANA CONSULTED VIA PHONE FOR NEW ORDERS / PLAN OF CARE.
--- NOTE | 2021-11-18 15:45 | NUR ---
PATIENT D/C'D TO HOME WITH DAUGHTER. PLANS TO F/U WITH PD NURSE UPON D/C. DC INSTRUCTIONS AND EDUCATION DISCUSSED WITH PATIENT AND COPY PROVIDED. PATIENT TO HAVE F/U LABS IN 1 WEEK AND THAT WAS DISCUSSED WITH PATIENT. PATIENT DENIES ANY FURTHER QUESTIONS OR CONCERNS.
== END 2021-11-18 16:08 | disposition home health service (06) | DRG 640 ==
LOC: ER 11:16 → MEDS 11:17 → ER 17:55 → MEDS 18:14
PROVIDERS: Emergency Medicine; Internal Medicine Nephrology; ADMIT Family Medicine
PROC: 3E1M39Z Irrigation of Peritoneal Cavity using Dialysate, Percutaneous Approach (ICD-10-PCS; principal; 2021-11-11)
DX: E83.52 Hypercalcemia (principal); N18.6 End stage renal disease; I12.0 Hypertensive chronic kidney disease with stage 5 chronic kidney disease or end stage renal disease; K56.7 Ileus, unspecified; N25.81 Secondary hyperparathyroidism of renal origin; E03.9 Hypothyroidism, unspecified; M10.9 Gout, unspecified; F32.A Depression, unspecified; D63.1 Anemia in chronic kidney disease; E83.42 Hypomagnesemia; K59.00 Constipation, unspecified; E78.5 Hyperlipidemia, unspecified; E86.9 Volume depletion, unspecified; E87.6 Hypokalemia; E86.0 Dehydration; Z79.01 Long term (current) use of anticoagulants; Z99.2 Dependence on renal dialysis; Z79.899 Other long term (current) drug therapy; Z95.5 Presence of coronary angioplasty implant and graft; Z87.891 Personal history of nicotine dependence
CPT/HCPCS: 36415; 71045; 74018; 74176; 80053; 80069; 82533; 83735; 83970; 84100; 84156; 84157; 84166; 84443; 84484; 85014; 85018; 85025; 86334; 86335; 87070; 87205; 89051; 93005; 93010; 93306; 96372; 96374; 96375; 97110; 97112; 97116; 97162; 97165; 97530; 99285-25; A9270; C9113; G0378; J0630; J1644; J2270; J2405; J2765; J3010; J3475; J3480; J7030; J7050

== ENCOUNTER → 2022-07-07 | Outpatient (CLI) | payer MEDICARE, OTHER ==
[~2022-07-07] MED LIST changes: +DIAZEPAM2 M2 PO; +DIAZEPAM5 M2 PO; +KLOR-CON 1010 ME8 PO; +LOSARTAN POTASS25 M2 PO; +MIDO5 PO; +PROZAC20 M9 PO; +TEMA7.5 PO; +TEMAZEPAM PO; +TRAM50 PO
[2022-07-07 13:41] LABS: BASOPHILS ABSOLUTE AUTO 0.07 K/mm3 (0.00-0.23); BASOPHILS PERCENT AUTO 1 % (0-2); EOSINOPHILS ABSOLUTE AUTO 0.07 K/mm3 (0.00-0.68); EOSINOPHILS PERCENT AUTO 1 % (0-6); Hematocrit 29.1 % (33.0-51.0); Hemoglobin 9.7 g/dL (11.5-16.0); IMMATURE GRAN ABSOLUTE AUTO 0.16 K/mm3 (0.00-0.10); IMMATURE GRAN PERCENT AUTO 1 % (0-1); LYMPHOCYTES ABSOLUTE AUTO 2.84 K/mm3 (0.84-5.20); LYMPHOCYTES PERCENT AUTO 22 % (21-46); MONOCYTES ABSOLUTE AUTO 0.42 K/mm3 (0.16-1.47); MONOCYTES PERCENT AUTO 3 % (4-13); Mean Corpuscular HGB 30.2 pg (26.0-34.0); Mean Corpuscular HGB Conc 33.3 g/dL (31.5-36.5); Mean Corpuscular Volume 91 fL (80-100); Mean Platelet Volume 10.3 fL (9.1-12.4); NEUTROPHILS ABSOLUTE AUTO 9.33 K/mm3 (1.96-9.15); NEUTROPHILS PERCENT AUTO 73 % (41-73); Platelet Count 367 K/mm3 (150-400); RDW Coefficient Variation 13.8 % (11.7-14.2); RDW Standard Deviation 45.7 fL (35.1-46.3); Red Blood Cell Count 3.21 M/mm3 (3.80-5.20); White Blood Cell Count 12.89 K/mm3 (4.00-11.30)
[2022-07-07 13:59] LABS: Percent Saturation 54.2 % (15.0-50.0)
== END | disposition home or self-care (01) ==
LOC: LAB SHORT 13:28
PROVIDERS: Internal Medicine Hematology & Oncology
DX: C25.9 Malignant neoplasm of pancreas, unspecified (principal); D50.0 Iron deficiency anemia secondary to blood loss (chronic)
CPT/HCPCS: 82728; 83540; 83550; 85025; 86301

== ENCOUNTER 2022-07-25 21:42 | Emergency (ER) | payer MEDICARE, OTHER ==
[~2022-07-25] VITALS: Ht 162.6 cm; Wt 60.8 kg
[2022-07-25 22:49] LABS: BASOPHILS ABSOLUTE AUTO 0.06 K/mm3 (0.00-0.23); BASOPHILS PERCENT AUTO 1 % (0-2); EOSINOPHILS ABSOLUTE AUTO 0.08 K/mm3 (0.00-0.68); EOSINOPHILS PERCENT AUTO 1 % (0-6); Hematocrit 28.5 % (33.0-51.0); Hemoglobin 9.1 g/dL (11.5-16.0); IMMATURE GRAN ABSOLUTE AUTO 0.03 K/mm3 (0.00-0.10); IMMATURE GRAN PERCENT AUTO 0 % (0-1); LYMPHOCYTES ABSOLUTE AUTO 1.94 K/mm3 (0.84-5.20); LYMPHOCYTES PERCENT AUTO 20 % (21-46); MONOCYTES ABSOLUTE AUTO 0.76 K/mm3 (0.16-1.47); MONOCYTES PERCENT AUTO 8 % (4-13); Mean Corpuscular HGB 29.3 pg (26.0-34.0); Mean Corpuscular HGB Conc 31.9 g/dL (31.5-36.5); Mean Corpuscular Volume 92 fL (80-100); Mean Platelet Volume 9.6 fL (9.1-12.4); NEUTROPHILS ABSOLUTE AUTO 6.81 K/mm3 (1.96-9.15); NEUTROPHILS PERCENT AUTO 70 % (41-73); NRBC ABSOLUTE 0.02 K/mm3 (0.00-0.02); NRBC Auto 0.2 /100 WBC (0.0-0.2); Platelet Count 402 K/mm3 (150-400); RDW Coefficient Variation 15.4 % (11.7-14.2); RDW Standard Deviation 50.4 fL (35.1-46.3); Red Blood Cell Count 3.11 M/mm3 (3.80-5.20); White Blood Cell Count 9.68 K/mm3 (4.00-11.30)
[2022-07-25 23:10] LABS: Albumin, Blood 2.8 g/dL (3.4-5.0); Albumin/Globulin Ratio 0.8 (0.8-1.8); Bilirubin, Total 0.3 mg/dL (0.1-1.0); Bun/Creatinine Ratio 3.2 (12.0-20.0); Calcium, Blood 10.5 mg/dL (8.5-10.1); Creatinine, Blood 9.75 mg/dL (0.40-1.00); Globulin, Blood 3.7 g/dL (2.2-4.0); Potassium, Blood 2.9 mmol/L (3.5-5.5); Total Protein, Blood 6.5 g/dL (6.4-8.2)
== END 2022-07-26 05:50 | disposition home or self-care (01) ==
LOC: ER 21:42
PROVIDERS: Emergency Medicine
DX: R53.1 Weakness (principal); I31.39 Other pericardial effusion (noninflammatory); I12.0 Hypertensive chronic kidney disease with stage 5 chronic kidney disease or end stage renal disease; N18.6 End stage renal disease; E03.9 Hypothyroidism, unspecified; E78.5 Hyperlipidemia, unspecified; Z87.891 Personal history of nicotine dependence; Z79.890 Hormone replacement therapy; Z79.899 Other long term (current) drug therapy; Z99.2 Dependence on renal dialysis
CPT/HCPCS: 36415; 71045; 74176; 80053; 84484; 85025; 93005; 93010; 99285-25; A9270

== ENCOUNTER 2022-08-09 16:07 | Emergency (ER) | payer MEDICARE, OTHER ==
[~2022-08-09] VITALS: Ht 162.6 cm; Wt 56.7 kg
[2022-08-09 17:16] LABS: BASOPHILS ABSOLUTE AUTO 0.08 K/mm3 (0.00-0.23); BASOPHILS PERCENT AUTO 1 % (0-2); EOSINOPHILS ABSOLUTE AUTO 0.07 K/mm3 (0.00-0.68); EOSINOPHILS PERCENT AUTO 1 % (0-6); Hematocrit 28.3 % (33.0-51.0); Hemoglobin 9.5 g/dL (11.5-16.0); IMMATURE GRAN PERCENT AUTO 1 % (0-1); LYMPHOCYTES PERCENT AUTO 25 % (21-46); MONOCYTES ABSOLUTE AUTO 0.92 K/mm3 (0.16-1.47); MONOCYTES PERCENT AUTO 8 % (4-13); Mean Corpuscular HGB 29.9 pg (26.0-34.0); Mean Corpuscular HGB Conc 33.6 g/dL (31.5-36.5); Mean Corpuscular Volume 89 fL (80-100); Mean Platelet Volume 9.8 fL (9.1-12.4); NEUTROPHILS ABSOLUTE AUTO 8.01 K/mm3 (1.96-9.15); NEUTROPHILS PERCENT AUTO 65 % (41-73); Platelet Count 400 K/mm3 (150-400); RDW Coefficient Variation 14.3 % (11.7-14.2); RDW Standard Deviation 46.4 fL (35.1-46.3); Red Blood Cell Count 3.18 M/mm3 (3.80-5.20); White Blood Cell Count 12.28 K/mm3 (4.00-11.30)
[2022-08-09 17:34] LABS: Thyroid Stimulating Hormone 9.68 uIU/mL (0.360-4.800)
[2022-08-09 17:41] LABS: Albumin, Blood 2.6 g/dL (3.4-5.0); Albumin/Globulin Ratio 0.6 (0.8-1.8); Bilirubin, Total 0.3 mg/dL (0.1-1.0); Bun/Creatinine Ratio 2.9 (12.0-20.0); Calcium, Blood 9.2 mg/dL (8.5-10.1); Creatinine, Blood 12.9 mg/dL (0.40-1.00); Globulin, Blood 4.3 g/dL (2.2-4.0); Potassium, Blood 3.3 mmol/L (3.5-5.5); Total Protein, Blood 6.9 g/dL (6.4-8.2)
[2022-08-09 18:01] LABS: Source, Urine Voided
[2022-08-09 18:10] LABS: Blood, Urine Neg (Neg); Color, Urine Yellow (P-Yellow); Glucose Qualitative, Urine Neg (Neg); Ketones, Urine Neg (Neg); Leukocyte Esterase, Urine 1+ (Neg); Nitrite, Urine Neg (Neg); Protein, Urine 2+ (Neg); Urobilinogen, Urine NORM (Normal)
[2022-08-09 18:30] LABS: Influenza A, PCR NEGATIVE (NEGATIVE); Influenza B, PCR NEGATIVE (NEGATIVE); Resp Syncytial Virus, PCR NEGATIVE (NEGATIVE); SARS-Cov-2 (COVID-19) PCR, MMC NEGATIVE (NEGATIVE)
[2022-08-09 18:31] LABS: Free Thyroxine 0.9 ng/dL (0.70-1.60)
[2022-08-09 18:34] LABS: Triiodothyronine, Free 1.11 pg/mL (2.18-3.98)
[2022-08-09 18:35] LABS: Bilirubin, Urine 2+ (Neg)
[2022-08-09 18:37] LABS: Appearance, Urine Hazy (Clear)
[2022-08-09 18:38] LABS: Mucus Light (0-Heavy); Squamous Epithelial Cells Mod /hpf (Few); Transitional Epithelial Cells Rare /hpf (0-Rare)
[2022-08-09 18:39] LABS: Bacteria Many /hpf; Hyaline Casts 0-2 /lpf (0-2); Red Blood Cells, Urine 0-2 /hpf (0-2)
[2022-08-09] MEDS ORDERED: LEVFLO500 PO (19:55)
== END 2022-08-09 20:34 | disposition home or self-care (01) ==
LOC: ER 16:07
PROVIDERS: Emergency Medicine
DX: N39.0 Urinary tract infection, site not specified (principal); E03.9 Hypothyroidism, unspecified
CPT/HCPCS: 0241U; 36415; 71045; 80053; 81001; 83690; 84439; 84443; 84481; 85025; 87086; 93005; 93010; 96365; 99285-25; J0696

== ENCOUNTER 2022-08-20 18:03 | Inpatient (IN) | payer MEDICARE, OTHER ==
[~2022-08-20] VITALS: Ht 162.6 cm; Wt 61.4 kg
[~2022-08-20 18:03] MED LIST changes: +LEVFLO500 PO; -PROZAC20 M9 PO; +Prozac40 MG PO; +TEMA15 PO; -TEMA7.5 PO
[2022-08-20 19:04] LABS: BASOPHILS ABSOLUTE AUTO 0.12 K/mm3 (0.00-0.23); BASOPHILS PERCENT AUTO 1 % (0-2); EOSINOPHILS ABSOLUTE AUTO 0.16 K/mm3 (0.00-0.68); EOSINOPHILS PERCENT AUTO 2 % (0-6); Hematocrit 26.5 % (33.0-51.0); Hemoglobin 8.9 g/dL (11.5-16.0); IMMATURE GRAN ABSOLUTE AUTO 0.09 K/mm3 (0.00-0.10); IMMATURE GRAN PERCENT AUTO 1 % (0-1); LYMPHOCYTES ABSOLUTE AUTO 3.32 K/mm3 (0.84-5.20); LYMPHOCYTES PERCENT AUTO 31 % (21-46); MONOCYTES ABSOLUTE AUTO 0.91 K/mm3 (0.16-1.47); MONOCYTES PERCENT AUTO 8 % (4-13); Mean Corpuscular HGB 30.1 pg (26.0-34.0); Mean Corpuscular HGB Conc 33.6 g/dL (31.5-36.5); Mean Corpuscular Volume 90 fL (80-100); Mean Platelet Volume 9.8 fL (9.1-12.4); NEUTROPHILS ABSOLUTE AUTO 6.28 K/mm3 (1.96-9.15); NEUTROPHILS PERCENT AUTO 58 % (41-73); Platelet Count 320 K/mm3 (150-400); RDW Coefficient Variation 13.7 % (11.7-14.2); RDW Standard Deviation 44.8 fL (35.1-46.3); Red Blood Cell Count 2.96 M/mm3 (3.80-5.20); White Blood Cell Count 10.88 K/mm3 (4.00-11.30)
[2022-08-20 20:25] LABS: Albumin, Blood 2.7 g/dL (3.4-5.0)
[2022-08-20 20:27] LABS: Albumin/Globulin Ratio 0.7 (0.8-1.8); Bilirubin, Total 0.3 mg/dL (0.1-1.0); Calcium, Blood 10.1 mg/dL (8.5-10.1); Globulin, Blood 3.7 g/dL (2.2-4.0); Total Protein, Blood 6.4 g/dL (6.4-8.2)
--- NOTE | 2022-08-20 22:18 | NUR ---
DIALYSIS NOTE EFFLUENT SAMPLE COLLECTED PER MD ORDER, VERY MINIMAL VOLUME AVAILABLE WITH DRAIN. IN & OUT FLUSH PROVIDED AND PT FILLED WITH 2L 1.5% DIALNEAL FOR OVERNIGHT DWELL. DISCUSSED PLAN WITH DR. MONTANA AND PLANS FOR PT TO BE ADMITTED AND STARTED ON CCPD IN AM WHEN PT ADMIT COMPLETE AND TRANSFERRED TO FLOOR. DISCUSSED WITH ANHYDROUS AMMONIA PRODUCTION SUPERVISOR AND NURSING SUPRIVISOR.
[2022-08-21] VITALS (10 sets, daily range): BP systolic 73–117; BP diastolic 39–52
[2022-08-21 00:21] LABS: RBC Count, Body Fluid 1 /mm3 (0-0)
[2022-08-21 00:24] LABS: Automated BF WBC Count 0.005 K/mm3 (0-999); Body Fluid WBC Count 5 /mm3 (0-999)
[2022-08-21 00:25] LABS: Appearance, Body Fluid Clear (Clear); Color, Body Fluid No color (None-Yellow)
[2022-08-21 00:36] LABS: Total Cell Count, Body Fluid 5
[2022-08-21 01:14] LABS: BASOPHILS ABSOLUTE AUTO 0.08 K/mm3 (0.00-0.23); BASOPHILS PERCENT AUTO 1 % (0-2); EOSINOPHILS ABSOLUTE AUTO 0.14 K/mm3 (0.00-0.68); EOSINOPHILS PERCENT AUTO 1 % (0-6); Hematocrit 25.6 % (33.0-51.0); Hemoglobin 8.7 g/dL (11.5-16.0); IMMATURE GRAN ABSOLUTE AUTO 0.09 K/mm3 (0.00-0.10); IMMATURE GRAN PERCENT AUTO 1 % (0-1); LYMPHOCYTES ABSOLUTE AUTO 3.52 K/mm3 (0.84-5.20); LYMPHOCYTES PERCENT AUTO 36 % (21-46); MONOCYTES ABSOLUTE AUTO 0.78 K/mm3 (0.16-1.47); MONOCYTES PERCENT AUTO 8 % (4-13); Mean Corpuscular Volume 88 fL (80-100); Mean Platelet Volume 9.6 fL (9.1-12.4); NEUTROPHILS ABSOLUTE AUTO 5.23 K/mm3 (1.96-9.15); NEUTROPHILS PERCENT AUTO 53 % (41-73); Platelet Count 320 K/mm3 (150-400); RDW Coefficient Variation 13.6 % (11.7-14.2); RDW Standard Deviation 43.9 fL (35.1-46.3); White Blood Cell Count 9.84 K/mm3 (4.00-11.30)
[2022-08-21 01:43] LABS: Magnesium, Blood 2.2 mg/dL (1.6-2.4)
[2022-08-21 01:50] LABS: Albumin, Blood 2.7 g/dL (3.4-5.0); Anion Gap 11 mmol/L (6-16); Blood Urea Nitrogen 44 mg/dL (8-24); Bun/Creatinine Ratio 3.1 (12.0-20.0); CO2, Blood 25 mmol/L (21-32); Calcium, Blood 9.6 mg/dL (8.5-10.1); Chloride, Blood 100 mmol/L (98-108); Glomerular Filtration Rate 2 (60-); Glucose, Blood 106 mg/dL (70-99); Phosphorus, Blood 6.6 mg/dL (2.5-4.9); Potassium, Blood 2.8 mmol/L (3.5-5.5); Sodium, Blood 136 mmol/L (136-145)
[2022-08-21] MEDS ORDERED: MIDODRINE HCL10 M2 PO (04:05)
[2022-08-21] MEDS ORDERED: Ativan1 MG PO (04:08)
--- NOTE | 2022-08-21 06:00 | NUR ---
SHIFT SUMMARY REPORT FROM YAMILET SMITH IN ED- REPORT THAT IV POTASSIUM STOPPED D/T PT REPORTING PAIN - ADMIT ORDERS FOR IV FLUIDS- WILL RUN CONCURRENT WITH POTASSIUM -PT TRANSFERRED TO ROOM VIA GURNEY- PT ABLE TO STAND AND PIVOT TO BED - STARTED IV FLUIDS CONCURRENT WITH POTASSIUM TO REDUCE PAIN IN RIGHT ARM- PT TOLERATED WELL- PT REQUESTED TEMAZEPAM TO HELP SLEEP- CALL TO DR. JURADO REQUESTING TEMAZEPAM AND NOTIFIED OF REPEAT LACTIC ACID AND CREATININE RESULTS- BED LOW POSITION, CALL LIGHT IN PLACE, SCUDS IN PLACE
--- NOTE | 2022-08-21 11:03 | NUR ---
DIALYSIS-PD PT IN BED. HAS A BAD H/A. VERY QUIET. SITE CLEAR. TX DUE TO MISSING TX LAST NIGHT. TOTAL [id number] ML. 2100 FILL, 1000 LAST FILL, 6 HR TX, 4 EXCHANGES. FLUID CLEAR. CLEANED AND REDRESSED DRESSING. TX STARTED AT 1035.
--- NOTE | 2022-08-21 17:47 | NUR ---
SHIFT SUMMARY NOTE PT A&O X4, PT AD PERITONEAL DIALYSIS DONE AT BEDSIDE, CURRENTLY STILL RUNNING. B/P 80'S/50'S. DR GAMEZ NOTIFIED, 250 CC BOLUS GIVEN. MIDODRINE INCREASED TO QID. PATIENT COMPLAINING OF RESTLESS LEG SYNDROME. NS RUNNING AT 50 ML/HR. VERY LITTLE U/O. DAUGHTER AT BEDSIDE
--- NOTE | 2022-08-21 19:20 | NUR ---
DIALYSIS-PD PT DC'ED FROM TX PER PROTOCAL. SHE WANTED TO GET UP, GO THE BATHROOM AND MOVE SOME. DAUGTHER WITH HER. FLUID VERY CLEAR. ID [id number], UF [id number]. DC'ED AT 1815. HAD LOW BP DURING TX.
--- NOTE | 2022-08-21 20:18 | NUR ---
DIALYSIS PD PT LOOKS ALOT BETTER THAN THIS AM. CONNECTED TO PD TX PER PROTOCDIPTI. TALKED TO THE RN ABOUT POSSIBLE ALARMS.
[2022-08-22 04:00] VITALS: BP 107/44
[2022-08-22 05:20] LABS: Hematocrit 20.1 % (33.0-51.0); Hemoglobin 6.8 g/dL (11.5-16.0)
[2022-08-22 06:02] LABS: Magnesium, Blood 1.9 mg/dL (1.6-2.4)
[2022-08-22 06:04] LABS: Albumin, Blood 2.1 g/dL (3.4-5.0); Anion Gap 7 mmol/L (6-16); Blood Urea Nitrogen 38 mg/dL (8-24); Bun/Creatinine Ratio 3.2 (12.0-20.0); CO2, Blood 24 mmol/L (21-32); Calcium, Blood 8.4 mg/dL (8.5-10.1); Chloride, Blood 103 mmol/L (98-108); Glomerular Filtration Rate 3 (60-); Glucose, Blood 122 mg/dL (70-99); Phosphorus, Blood 5.2 mg/dL (2.5-4.9); Potassium, Blood 3.5 mmol/L (3.5-5.5); Sodium, Blood 134 mmol/L (136-145)
--- NOTE | 2022-08-22 06:41 | NUR ---
PT SITTING UP IN BED DURING BEDSIDE REPORT, DAUGHTER TANIKA AT BESIDE, TANIKA TO BRING IN CURRENT LIST OF MEDS TODAY, PT CURRENTLY ON PERITONEAL DIAYLISIS RUNNING- CALL TO DR. MARIN PT REQUESTING NIGHT DOSE OF TEMAZEPAM AND SLEEP AIDE, NEW ORDER FOR TEMAZEPAM AND MELATONIN = GAVE ZOFRAN WITH D/T PT C/O NAUSEA- PT ABLE TO SLEEP AFTER MEDICATIONS, PT WOKE FOR VITALS AND SCHEDULED MEDS, PT REPORTS FEELING LIKE SHE GOT MORE SLEEP TONIGHT- BED LOW POSITION, CALL LIGHT WITHIN REACH
--- NOTE | 2022-08-22 07:30 | NUR ---
DIALYSIS NOTE PT AWAKE SITTING UP ON BED WHEN THIS RN ARRIVED. PT REPORTS SHE IS FEELING A LITTLE BETTER. CCPD TX COMPLETED PRESCRIBED. IDRAIN 1001, TUF 164, AVG DWELL TIME 56MIN. PT REPORTS SHE TOLERATED TX WELL, EFFLEUNT CLEAR, PT DICONNECTED FROM CYCLER AND TRANSFER SET CAPPED AND SECURED. REPORT GIVEN TO BEDSIDE RN.
[2022-08-22 08:47] VITALS: BP 115/47
[2022-08-22 17:13] VITALS: BP 109/44
--- NOTE | 2022-08-22 17:39 | NUR ---
SHIFT SUMMARY- PT FLAT AFFECT. A@O X3. DAUGHTER AT BEDSIDE. N/V DURING AM SHIFT, TREATED PER EMAR. AFTERNOON NAUSEA SUBSIDED. PT ASLEEP OFTEN THROUGHOUT SHIFT. VSS. NO ACUTE CHANGES. WILL CONTINUE TO MONITOR. CALL LIGHT IN REACH, BED RAILS UP, AND BED ALARM ON FOR SAFETY.
[2022-08-22 19:53] VITALS: BP 104/47
--- NOTE | 2022-08-22 20:27 | NUR ---
DIALYSIS NOTE CCPD TX SET UP FOR 10HR NIGHT PD TX. PT CONNECTED PER P&P, TOLERATED WELL. FAMILY AT BEDSIDE. REPORT GIVEN TO BEDSIDE RN, STEFAN PATRICIA RN.
[2022-08-22 23:41] VITALS: BP 108/46
[2022-08-23] VITALS (7 sets, daily range): BP systolic 102–118; BP diastolic 41–56
--- NOTE | 2022-08-23 04:00 | NUR ---
SHIFT UNREMARKABLE. PT REFUSED 2100 MEGESTROL ACETATE. SBP WAS <130MMHG SO 0000 MIDODRINE WAS HELD. PT HAS HAD PERITONEAL DIALYSIS RUNNING THROUGH THE EVENING WITHOUT DIFFICULTY. NUMBER FOR DIALYSIS NURSE IS IN THE CART FOR MACHINE IF ASSISTANCE IS NEEDED. PT HAS DENIED PAIN THROUGHOUT SHIFT AND HAS RESTED COMFORTABLY IN BED SINCE 2100 ASSESSMENT AND MED PASS. BED LOCKED IN LOWEST POSITION. CALL LIGHT LEFT WITHIN REACH.
[2022-08-23 04:43] LABS: BASOPHILS ABSOLUTE AUTO 0.07 K/mm3 (0.00-0.23); BASOPHILS PERCENT AUTO 1 % (0-2); EOSINOPHILS ABSOLUTE AUTO 0.23 K/mm3 (0.00-0.68); EOSINOPHILS PERCENT AUTO 3 % (0-6); Hematocrit 20.2 % (33.0-51.0); Hemoglobin 6.8 g/dL (11.5-16.0); IMMATURE GRAN ABSOLUTE AUTO 0.04 K/mm3 (0.00-0.10); IMMATURE GRAN PERCENT AUTO 0 % (0-1); LYMPHOCYTES ABSOLUTE AUTO 2.98 K/mm3 (0.84-5.20); LYMPHOCYTES PERCENT AUTO 33 % (21-46); MONOCYTES ABSOLUTE AUTO 0.85 K/mm3 (0.16-1.47); MONOCYTES PERCENT AUTO 9 % (4-13); Mean Corpuscular HGB 30.2 pg (26.0-34.0); Mean Corpuscular HGB Conc 33.7 g/dL (31.5-36.5); Mean Corpuscular Volume 90 fL (80-100); Mean Platelet Volume 9.8 fL (9.1-12.4); NEUTROPHILS ABSOLUTE AUTO 4.87 K/mm3 (1.96-9.15); NEUTROPHILS PERCENT AUTO 54 % (41-73); Platelet Count 250 K/mm3 (150-400); RDW Coefficient Variation 14.2 % (11.7-14.2); RDW Standard Deviation 46.1 fL (35.1-46.3); Red Blood Cell Count 2.25 M/mm3 (3.80-5.20); White Blood Cell Count 9.04 K/mm3 (4.00-11.30)
[2022-08-23 05:22] LABS: Albumin, Blood 1.9 g/dL (3.4-5.0); Albumin/Globulin Ratio 0.7 (0.8-1.8); Bilirubin, Total 0.3 mg/dL (0.1-1.0); Calcium, Blood 8.1 mg/dL (8.5-10.1); Globulin, Blood 2.8 g/dL (2.2-4.0); Phosphorus, Blood 5.3 mg/dL (2.5-4.9); Potassium, Blood 3.2 mmol/L (3.5-5.5); Total Protein, Blood 4.7 g/dL (6.4-8.2)
[2022-08-23 05:31] LABS: Bun/Creatinine Ratio 3.4 (12.0-20.0); Creatinine, Blood 10.8 mg/dL (0.40-1.00)
--- NOTE | 2022-08-23 08:17 | NUR ---
DIALYSIS-PD PT SAYS SHE IS NOT FEELING WELL AGAIN. DCED TX AT 0750 PER PROTOCAL. ID [id number] UF [id number]. FLUID CLEAR.
--- NOTE | 2022-08-23 18:24 | NUR ---
SHIFT SUMMARY PT AWAKE DURING SHIFT REPORT THIS AM. PERITONEAL DIALYSIS COMPLETE. CORTISOL TEST ORDERED; LAB DRAWS AND FUSION OPERATOR COMPLETE PER ORDERS. PT ASSISTED UP TO SHOWER THIS AFTERNOON AND ABLE TO AMBULATE TO CHAIR, AFTERWARDS, WHILE BED LINEN CHANGED. PT REPORTED DOING WELL AND FEELS SHE IS READY TO GO HOME. MULTIPLE VISITORS IN FOR SEVERAL HOURS TODAY. PT IS SITTING UP IN BED EATING DINNER AT THIS TIME. SQL DATABASE ADMINISTRATOR HERE TO HOOK PT UP TO PD FOR THE NIGHT. CALL LT IN REACH. ABLE TO MAKE NEEDS KNOWN.
--- NOTE | 2022-08-23 19:04 | NUR ---
DIALYSIS-PD PT LOOKS ALOT BETTER THEN THIS AM. SAYS SHE GOT UP AND SHOWERED. FELT BETTER. CONNECTED AT 1840 TO PD. HER DRESSING WAS MISSING. CLEANED AND REDRESSED PER PROTOCAL. PROGRAM 10 HR TX, 5 EXCHANGES, 2100ML FILL VOLUME, 1.5 % DIANEAL 6L BAG X 2, 0 LAST FILL. TOTAL VOLUME [id number] ML.
[2022-08-24 03:43] VITALS: BP 103/64
--- NOTE | 2022-08-24 05:28 | NUR ---
SUMMARY: ORDERS IN FOR BLOOD TRANSFUSION. GAVE ONE UNIT OF BLOOD LAST NIGHT. HGB 8.0 THIS MORNING AFTER TRANSFUSION. PATIENT AOX4. 1X ASSIST TO BEDSIDE COMMODE. PERITONEAL DIALYSIS RAN OVERNIGHT. PATIENT HAD A BM OVERNIGHT. TELE IN PLACE NO EVENTS. VSS. BP SOFT. CALL LIGHT IN REACH. BED ALARM ON.
[2022-08-24 05:33] LABS: Magnesium, Blood 1.8 mg/dL (1.6-2.4)
[2022-08-24 05:35] LABS: Anion Gap 6 mmol/L (6-16); Blood Urea Nitrogen 34 mg/dL (8-24); Bun/Creatinine Ratio 3.5 (12.0-20.0); CO2, Blood 26 mmol/L (21-32); Calcium, Blood 8.2 mg/dL (8.5-10.1); Chloride, Blood 102 mmol/L (98-108); Creatinine, Blood 9.83 mg/dL (0.40-1.00); Glomerular Filtration Rate 4 (60-); Glucose, Blood 102 mg/dL (70-99); Phosphorus, Blood 4.4 mg/dL (2.5-4.9); Sodium, Blood 134 mmol/L (136-145)
[2022-08-24 07:51] VITALS: BP 108/39
--- NOTE | 2022-08-24 08:45 | NUR ---
DIALYSIS NOTE PT AWAKE SITTING UP ON BED WHEN THIS RN ARRIVED. PT REPORTS SHE IS FEELING A LITTLE BETTER. CCPD TX COMPLETED PRESCRIBED. IDRAIN 43, TUF 77, AVG DWELL TIME 1:09. PT REPORTS SHE TOLERATED TX WELL, EFFLEUNT CLEAR, PT DICONNECTED FROM CYCLER AND TRANSFER SET CAPPED AND SECURED. PT ANTICIPATES D/C HOME TODAY. REPORT GIVEN TO YASIR BEDSIDE RN.
[2022-08-24 15:56] VITALS: BP 111/48
[2022-08-24] MEDS ORDERED: FLUDROCORTISON0.1 M1 PO (16:15)
[2022-08-24] MEDS ORDERED: HYDCOR10 PO (16:16)
[2022-08-24] MEDS ORDERED: MELATONIN 5 MG1 EACH PO (16:16)
[2022-08-24] MEDS ORDERED: PRAM.125 PO (16:16)
[2022-08-24] MEDS ORDERED: PANT40 PO (16:17)
--- NOTE | 2022-08-24 17:01 | NUR ---
SHIFT SUMMARY PT RESTING QUIETLY, BUT AWAKE DURING SHIFT REPORT. HOME ADVISOR HERE TO REMOVE PD FROM THE NIGHT. PT REMAINS WEAK, BUT IMPROVING WHEN GETTING UP TO BTHRM. PT TODAY IS A SBA USING FWW AND ABLE TO AMBULATE INTO BTHRM AND BACK NEEDED. DR BRAUN IN TO SEE PT AND DISCUSS PLAN OF CARE, LATER RETURNING WHEN DAUGHTER ARRIVED TO DISCUSS D/C TO HOME. PT AGREEABLE AND WANTING TO GO HOME. MEDS FAXED PER PT REQUEST. FAMILY HERE TO VISIT AND LATER TO TAKE PT HOME. D/C ORDERS AND INSTRUCTIONS REVIEWED WITH PT; VERBALIZED UNDERSTANDING. PT ASSISTED OUT TO FAMILY'S CAR VIA W/C. BELONGINGS WENT WITH PT AND DAUGHTER.
== END 2022-08-24 16:46 | disposition home health service (06) | DRG 682 ==
LOC: ER 18:03 → MEDS 18:04
PROVIDERS: Emergency Medicine; Family Medicine; Internal Medicine Nephrology; Student in an Organized Health Care Education/Training Program; ADMIT Internal Medicine
PROC: 3E1M39Z Irrigation of Peritoneal Cavity using Dialysate, Percutaneous Approach (ICD-10-PCS; principal; 2022-08-21)
PROC: 30233N1 Transfusion of Nonautologous Red Blood Cells into Peripheral Vein, Percutaneous Approach (ICD-10-PCS; 2022-08-23)
DX: I12.0 Hypertensive chronic kidney disease with stage 5 chronic kidney disease or end stage renal disease (principal); N18.6 End stage renal disease; E87.1 Hypo-osmolality and hyponatremia; E27.40 Unspecified adrenocortical insufficiency; E87.20 Acidosis, unspecified; N25.81 Secondary hyperparathyroidism of renal origin; E86.1 Hypovolemia; D63.1 Anemia in chronic kidney disease; I95.9 Hypotension, unspecified; R29.6 Repeated falls; M10.9 Gout, unspecified; E03.9 Hypothyroidism, unspecified; E78.5 Hyperlipidemia, unspecified; E88.09 Other disorders of plasma-protein metabolism, not elsewhere classified; K21.9 Gastro-esophageal reflux disease without esophagitis; E87.6 Hypokalemia; S19.9XXA Unspecified injury of neck, initial encounter; S09.90XA Unspecified injury of head, initial encounter; W18.30XA Fall on same level, unspecified, initial encounter; R62.7 Adult failure to thrive; E86.9 Volume depletion, unspecified; E83.39 Other disorders of phosphorus metabolism; Z87.891 Personal history of nicotine dependence; Z90.710 Acquired absence of both cervix and uterus; Z98.890 Other specified postprocedural states; Z68.21 Body mass index [BMI] 21.0-21.9, adult; Z99.2 Dependence on renal dialysis; Z79.899 Other long term (current) drug therapy; Z79.891 Long term (current) use of opiate analgesic
CPT/HCPCS: 36415; 36430; 70450; 71045; 72125; 80053; 80069; 80400; 82533; 83605; 83735; 84100; 84132; 84443; 85014; 85018; 85025; 86850; 86900; 86901; 86923; 87070; 87075; 87205; 89051; 93005; 93010; 93306; 96361; 96365; 96372; 99285-25; A9270; G0378; J0834; J0881; J2405; J3480; J7030; J7050; P9016

== ENCOUNTER → 2022-11-25 | Outpatient (CLI) | payer MEDICARE, OTHER ==
[~2022-11-25] MED LIST changes: +Ativan1 MG PO; +FLUDROCORTISON0.1 M1 PO; +HYDCOR10 PO; +MELATONIN 5 MG1 EACH PO; +MIDODRINE HCL10 M2 PO; +PANT40 PO; +PRAM.125 PO
[2022-11-25 14:12] LABS: Albumin, Blood 2.6 g/dL (3.4-5.0); Albumin/Globulin Ratio 0.9 (0.8-1.8); Bilirubin, Total 0.3 mg/dL (0.1-1.0); Bun/Creatinine Ratio 2.5 (12.0-20.0); Calcium, Blood 10.7 mg/dL (8.5-10.1); Creatinine, Blood 13.8 mg/dL (0.40-1.00); Globulin, Blood 2.8 g/dL (2.2-4.0); Phosphorus, Blood 6.3 mg/dL (2.5-4.9); Potassium, Blood 4.2 mmol/L (3.5-5.5); Total Protein, Blood 5.4 g/dL (6.4-8.2)
== END | disposition home or self-care (01) ==
LOC: LAB 11:56 → LAB SHORT 11:56
PROVIDERS: Internal Medicine Hematology & Oncology
DX: D50.0 Iron deficiency anemia secondary to blood loss (chronic) (principal)
CPT/HCPCS: 80053; 84100

== ENCOUNTER 2023-05-19 15:38 | Inpatient (IN) | payer MEDICARE, OTHER ==
[~2023-05-19] VITALS: Ht 162.6 cm; Wt 65.4 kg
[2023-05-19] VITALS (18 sets, daily range): BP systolic 114–166; BP diastolic 45–81
[2023-05-19 16:00] LABS: Chloride (POC) 96 mmol/L (98-108); Glucose (ISTAT POC) 153 mg/dL (70-99); Hemoglobin (POC) 5.8 g/dL (12.0-16.0); Potassium (POC) 3.4 mmol/L (3.5-5.5); Sodium (POC) 129 mmol/L (135-148); Total CO2 (POC) 18 mmol/L (21-32)
[2023-05-19 16:17] LABS: BASOPHILS ABSOLUTE AUTO 0.06 K/mm3 (0.00-0.23); BASOPHILS PERCENT AUTO 0 % (0-2); EOSINOPHILS PERCENT AUTO 1 % (0-6); IMMATURE GRAN PERCENT AUTO 4 % (0-1); LYMPHOCYTES ABSOLUTE AUTO 1.85 K/mm3 (0.84-5.20); LYMPHOCYTES PERCENT AUTO 10 % (21-46); MONOCYTES ABSOLUTE AUTO 0.71 K/mm3 (0.16-1.47); MONOCYTES PERCENT AUTO 4 % (4-13); Mean Corpuscular HGB 30.4 pg (26.0-34.0); Mean Corpuscular HGB Conc 32.3 g/dL (31.5-36.5); Mean Corpuscular Volume 94 fL (80-100); Mean Platelet Volume 9.3 fL (9.1-12.4); NEUTROPHILS ABSOLUTE AUTO 15.26 K/mm3 (1.96-9.15); NEUTROPHILS PERCENT AUTO 81 % (41-73); Platelet Count 536 K/mm3 (150-400); RDW Coefficient Variation 14.6 % (11.7-14.2); RDW Standard Deviation 49.5 fL (35.1-46.3); Red Blood Cell Count 1.68 M/mm3 (3.80-5.20); White Blood Cell Count 18.78 K/mm3 (4.00-11.30)
[2023-05-19 16:28] LABS: Hematocrit 15.8 % (33.0-51.0); Hemoglobin 5.1 g/dL (11.5-16.0)
[2023-05-19 16:36] LABS: Ethanol (Alcohol), Blood, Med <3 mg/dL; Magnesium, Blood 2.1 mg/dL (1.6-2.4)
[2023-05-19 17:10] LABS: Alanine Aminotransfer (ALT/SGP 11 U/L (12-78); Albumin, Blood 1.8 g/dL (3.4-5.0); Albumin/Globulin Ratio 0.5 (0.8-1.8); Alk Phos 56 U/L (50-136); Anion Gap 20 mmol/L (6-16); Aspartate Aminotrans (AST/SGOT 17 U/L (12-37); Bilirubin, Total 0.2 mg/dL (0.1-1.0); Blood Urea Nitrogen 68 mg/dL (8-24); Bun/Creatinine Ratio 5.9 (12.0-20.0); CO2, Blood 18 mmol/L (21-32); Calcium, Blood 8.7 mg/dL (8.5-10.1); Chloride, Blood 95 mmol/L (98-108); Globulin, Blood 3.5 g/dL (2.2-4.0); Glomerular Filtration Rate 3 (60-); Glucose, Blood 160 mg/dL (70-99); Potassium, Blood 3.6 mmol/L (3.5-5.5); Sodium, Blood 133 mmol/L (136-145); Total Protein, Blood 5.3 g/dL (6.4-8.2)
[2023-05-19 17:57] LABS: Influenza A, PCR NEGATIVE (NEGATIVE); Influenza B, PCR NEGATIVE (NEGATIVE); Resp Syncytial Virus, PCR NEGATIVE (NEGATIVE); SARS-Cov-2 (COVID-19) PCR, MMC NEGATIVE (NEGATIVE)
--- NOTE | 2023-05-19 19:25 | NUR ---
ARRIVAL TO ICU: PT ARRIVED TO ICU 10 FROM ER VIA GURNEY AT 1925. PT SLID ACROSS TO ICU BED WITH MAX ASSIST. PT ALERT AND ORIENTED TO TIME, PERSON, PLACE AND SITUATION. ABLE TO ANSWER QUESTIONS AND MAKE NEEDS KNOWN. DR. CERVANTES AT BEDSIDE AT 1999 FOR ENDOSCOPY. 1 UNIT PRBC INFUSING AT 175 ML/HR UPON ARRIVAL TO ICU. PT LUNG SOUNDS CLEAR IN UPPER LOBES AND DIM IN THE BASES. PT DENIES SOB. PT ON 2L NC WITH SPO2 >95%. TITRATED TO RA. PROTONIX INFUSING. PERITONEAL DIAYLSIS STARTED PER DIALYSIS NURSE. PIV TO RIGHT FOREARM PATENT. PIV TO RAC PATENT. NO URINE OUTPUT YET THIS SHIFT. NO BM YET THIS SHIFT. DAUGHTER AT THE BEDSIDE, UPDATED TO PLAN OF CARE. PT HAS PHONE AND RIVER AND HARBOR SOUNDINGS GROUP LEADER, NO OTHER BELONGINGS. CALL LIGHT IN REACH
--- NOTE | 2023-05-19 19:58 | NUR ---
05/19/231957 Maritza Fischer Pre-Op teaching done. Patient verbalizes understanding. History, Chart, Medications and Allergies reviewed before start of procedure. MONITOR INTACT WITH CONTINUOUS PULSE OXIMETRY, CONTINUOUS END TITAL CO2, AND INTERMITTENT BLOOD PRESSURE. SEE DR. SMITH ANESTHESIA RECORD FOR SEDATION.
--- NOTE | 2023-05-19 22:00 | NUR ---
DIALYSIS NOTE HVAC TECHNICIAN RESIDENTIAL IN TO SET UP CCPD NIGHT TX PER MD ORDER. REPORT RECIEVED FROM PRIMARY BEDSIDE RN, SALUD, IN ICU. PT RESTING IN BED WITH EYES CLOSED, AND EASY TO WAKE. WRITTEN CONSENT FOR PERITONEAL DIALYIS OBTAINED. CCPD TX INITIATED PER P&P FOLLOWING MD ORDERS. DRSG CHANGE COMPLETED, EXIT SITE IN PERFECT CONDITION. TROUBLESHOOTING REVIEWED WITH PRIMARY RN AND DIELECTRIC TESTING MACHINE OPERATOR NUMBER PROVIDED.
[2023-05-19] MEDS ORDERED: TEMA15 PO (22:09)
[2023-05-19] MEDS ORDERED: LOSA25 PO (22:11)
[2023-05-19] MEDS ORDERED: AURYXIA210 MG PO (22:12)
[2023-05-19] MEDS ORDERED: CALC.25 PO (22:13)
[2023-05-19] MEDS ORDERED: CINA30 PO (22:14)
[2023-05-19 22:44] LABS: International Normalized Ratio 0.92; Prothrombin Time Results 9.7 Sec (9.7-11.5)
[2023-05-20] VITALS (58 sets, daily range): BP systolic 80–163; BP diastolic 42–99
[2023-05-20 04:21] LABS: BASOPHILS ABSOLUTE AUTO 0.04 K/mm3 (0.00-0.23); BASOPHILS PERCENT AUTO 0 % (0-2); EOSINOPHILS ABSOLUTE AUTO 0.01 K/mm3 (0.00-0.68); EOSINOPHILS PERCENT AUTO 0 % (0-6); Hematocrit 22.7 % (33.0-51.0); Hemoglobin 7.9 g/dL (11.5-16.0); IMMATURE GRAN ABSOLUTE AUTO 0.32 K/mm3 (0.00-0.10); IMMATURE GRAN PERCENT AUTO 2 % (0-1); LYMPHOCYTES ABSOLUTE AUTO 1.38 K/mm3 (0.84-5.20); LYMPHOCYTES PERCENT AUTO 7 % (21-46); MONOCYTES PERCENT AUTO 3 % (4-13); Mean Corpuscular HGB 29.5 pg (26.0-34.0); Mean Corpuscular HGB Conc 34.8 g/dL (31.5-36.5); Mean Platelet Volume 8.9 fL (9.1-12.4); NEUTROPHILS ABSOLUTE AUTO 18.62 K/mm3 (1.96-9.15); NEUTROPHILS PERCENT AUTO 89 % (41-73); Platelet Count 392 K/mm3 (150-400); RDW Coefficient Variation 14.6 % (11.7-14.2); RDW Standard Deviation 44.3 fL (35.1-46.3); Red Blood Cell Count 2.68 M/mm3 (3.80-5.20); White Blood Cell Count 21.07 K/mm3 (4.00-11.30)
[2023-05-20 04:57] LABS: Magnesium, Blood 2.1 mg/dL (1.6-2.4)
[2023-05-20 04:59] LABS: Albumin, Blood 1.8 g/dL (3.4-5.0); Albumin/Globulin Ratio 0.5 (0.8-1.8); Bilirubin, Total 0.2 mg/dL (0.1-1.0); Bun/Creatinine Ratio 6.4 (12.0-20.0); Calcium, Blood 8.4 mg/dL (8.5-10.1); Creatinine, Blood 10.2 mg/dL (0.40-1.00); Globulin, Blood 3.4 g/dL (2.2-4.0); Phosphorus, Blood 6.7 mg/dL (2.5-4.9); Total Protein, Blood 5.2 g/dL (6.4-8.2)
[2023-05-20 05:15] LABS: Mean Corpuscular Volume 85 fL (80-100)
--- NOTE | 2023-05-20 06:24 | NUR ---
SHIFT SUMMARY: PT REMAINS ALERT AND ORIENTED TO TIME, PERSON, PLACE AND SITUATION. ABLE TO ANSWER QUESTIONS AND MAKE NEEDS KNOWN. PT PLEASANT AND COOPERATIVE WITH ALL CARE. PT REMAINS ON RA WITH SPO2 >94%. DENIES SOB. MILK SAMPLER IN PLACE, HR 70'S. SBP 120'S. DENIES CHEST PAIN OR PRESSURE. LUNG SOUNDS REMAIN CLEAR IN THE UPPER LOBES AN DIM IN THE BASES. PROTONIX DRIP INFUSING AT 10 ML/HR. POWERGLIDE TO ABILIO, PATENT AND INFUSING. PERITONEAL DIALYSIS CONTINUES TO RUN T/O THE NIGHT. DIALYSIS CATHETER IN LEFT LOWER ABDOMEN. NO BM THIS SHIFT. PT VOIDING YELLOW URINE INTO BEDPAN WITH ASSIST. CALL LIGHT IN REACH. BED LOW AND LOCKED.
--- NOTE | 2023-05-20 08:15 | NUR ---
DIALYSIS NOTE CCPD TX COMPLETED PRESCRIBED. IDRAIN 1ML, TUF 1654, AVG DWELL 59 MIN. PT D/C PER P&P, TRANSFER SET CLOSED AND SECURED. HANDOFF REPORT GIVEN TO PRIMARY BEDSIDE ENGINEER BOOSTER AND EXHAUSTER.
--- NOTE | 2023-05-20 09:53 | NUR ---
"Spiritual Care Visit | Pt. Request Pt. is awake in bed and welcomes my visit. Pt. displays evidence of being guarded about her personal life and travis. Listen with empathy and a calming presence. Pastoral care and support is given. Pt. verbalizes only nominal back pain. Pt. displays evidence of increased trust. Prayed with Pt. Pt. verbalized gratitude for the spiritual care visit and welcomed this business systems developer to return."
--- NOTE | 2023-05-20 16:30 | NUR ---
POWER GLIDE TO LEFT UPPER ARM FLUSHES WELL AND DRESSING C/D/I.
--- NOTE | 2023-05-20 16:30 | NUR ---
HISTORY AND UPDATED LABS REVIEWED BY DR. BELCHER PRIOR TO PROCEDURE IN ICU ROOM 10. DNR FORM SIGNED. SEE ANESTHESIA RECORD.
--- NOTE | 2023-05-20 16:45 | NUR ---
05/20/23 1645 Trinidad Nava History and updated labs reviewed by Dr. Mckenzie prior to procedure in ICU . DNR form signed. see Anesthesia record.
[2023-05-20 17:35] LABS: Hematocrit 21.4 % (33.0-51.0); Hemoglobin 7.4 g/dL (11.5-16.0)
--- NOTE | 2023-05-20 17:41 | NUR ---
DIALYSIS NOTE PRECIPITATION EQUIPMENT TENDER IN TO SET UP CCPD NIGHT TX PER MD ORDER. REPORT RECIEVED FROM PRIMARY BEDSIDE RN, THOR, IN ICU. PT RESTING IN BED WITH EYES CLOSED, AND EASY TO WAKE. CCPD TX INITIATED PER P&P FOLLOWING MD ORDERS. DRSG CHANGE COMPLETED, EXIT SITE IN PERFECT CONDITION. TROUBLESHOOTING REVIEWED WITH PRIMARY RN AND FIELD PLACEMENT DIRECTOR NUMBER PROVIDED.
--- NOTE | 2023-05-20 17:57 | NUR ---
SHIFT SUMMARY PATIENT SLEPT OFF AN ON T/O SHIFT. REQUIRED 2LPM VIA NC WHEN SLEEPING D/T DESATURATION TO 88% AT LOWEST. ROOM AIR WHEN AWAKE. PATIENT HAD ONE MINIMAL VOID, NO BM THIS SHIFT. EGD COMPLETED AT BEDSIDE. REPEAT HGB THIS AFTERNOON SHOWED DROP FROM 7.[address] WHITNEY NOTIFIED AND ORDER RECEIVED FOR MEDICAL STATUS NO TELEMETRY AND FULL IWUID DIET TONIGHT WITH REGULAR DIET IN THE AM IF LIQUIDS TOLERATED. NO OTHER CHANGES THIS SHIFT.
--- NOTE | 2023-05-20 21:18 | NUR ---
ASSUMPTION OF CARE: RECIEVED REPORT FROM THOR SMITH. PT ALERT AND ORIENTED TO TIME, PERSON, PLACE AND SITUATION. ABLE TO ANSWER QUESTIONS AND MAKE NEEDS KNOWN. PT PLEASANT AND COOPERATIVE WITH CARE. PT MEDICAL STATUS WITH NO TELE. PT ON RA WITH SPO2 >94%. DENIES SOB. SBP 100'S, HR 70'S. DENIES CHEST PAIN OR PRESSURE. PT HAS C/O HEADACHE, MEDICATED PER MAR WITH RELIEF. PT HAS HEATING PAD IN PLACE WHICH SHE STATES ALSO PROVIDES RELIEF. PT ABLE TO MOVE AROUND IN THE BED INDEPENDENTLY. VOIDING SMALL AMOUNTS OF YELLOW URINE. NO BM YET THIS SHIFT. POWERGLIDE TO ABILIO, SALINE LOCKED. PERITONEAL DIALYSIS RUNNING. PORT IN LEFT LOWER ABDOMEN. TOLERATING PO INTAKE. CALL LIGHT IN REACH, BED LOW AND LOCKED.
[2023-05-21] VITALS (16 sets, daily range): BP systolic 71–140; BP diastolic 29–65
[2023-05-21 04:22] LABS: BASOPHILS ABSOLUTE AUTO 0.07 K/mm3 (0.00-0.23); BASOPHILS PERCENT AUTO 0 % (0-2); EOSINOPHILS ABSOLUTE AUTO 0.26 K/mm3 (0.00-0.68); EOSINOPHILS PERCENT AUTO 1 % (0-6); Hematocrit 23.1 % (33.0-51.0); IMMATURE GRAN PERCENT AUTO 1 % (0-1); LYMPHOCYTES ABSOLUTE AUTO 1.84 K/mm3 (0.84-5.20); LYMPHOCYTES PERCENT AUTO 10 % (21-46); MONOCYTES ABSOLUTE AUTO 0.83 K/mm3 (0.16-1.47); MONOCYTES PERCENT AUTO 4 % (4-13); Mean Corpuscular HGB 29.9 pg (26.0-34.0); Mean Corpuscular HGB Conc 34.6 g/dL (31.5-36.5); Mean Corpuscular Volume 86 fL (80-100); NEUTROPHILS ABSOLUTE AUTO 15.73 K/mm3 (1.96-9.15); NEUTROPHILS PERCENT AUTO 83 % (41-73); Platelet Count 403 K/mm3 (150-400); RDW Coefficient Variation 15.3 % (11.7-14.2); RDW Standard Deviation 47.5 fL (35.1-46.3); Red Blood Cell Count 2.68 M/mm3 (3.80-5.20); White Blood Cell Count 18.93 K/mm3 (4.00-11.30)
[2023-05-21 04:52] LABS: Magnesium, Blood 1.9 mg/dL (1.6-2.4)
[2023-05-21 05:10] LABS: Albumin, Blood 1.8 g/dL (3.4-5.0); Anion Gap 10 mmol/L (6-16); Blood Urea Nitrogen 57 mg/dL (8-24); Bun/Creatinine Ratio 5.8 (12.0-20.0); CO2, Blood 26 mmol/L (21-32); Calcium, Blood 8.8 mg/dL (8.5-10.1); Chloride, Blood 103 mmol/L (98-108); Creatinine, Blood 9.86 mg/dL (0.40-1.00); Glomerular Filtration Rate 4 (60-); Glucose, Blood 72 mg/dL (70-99); Phosphorus, Blood 5.9 mg/dL (2.5-4.9); Potassium, Blood 3.7 mmol/L (3.5-5.5); Sodium, Blood 139 mmol/L (136-145)
--- NOTE | 2023-05-21 06:23 | NUR ---
SHIFT SUMMARY: NO ACUTE CHANGES T/O THE SHIFT. PT REMAINS ALERT AND ORIENTED X4. ABLE TO ANSWER QUESTIONS AND MAKE NEEDS KNOWN. PT CALM AND COOPERATIVE T/O THE SHIFT. ABLE TO REST ON AND OFF. PT DENIES ANY PAIN. MEDICAL STATUS NO TELE. PT REMAINS ON RA, SPO2 >95%. DENIES SOB. POWERGLIDE TO AIBLIO, PATENT AND SALINE LOCKED. PT DENIES NEED TO VOID. NO BM THIS SHIFT. PERITONEAL DIALYSIS CONTINUES TO RUN T/O THE SHIFT. DIALYSIS PORT IN LEFT LOWER ABDOMEN, DRESSING C/D/I. PT ABLE TO REPOSITION IN THE BED INDEPENDENTLY. TOLERATING PO INTAKE WELL. DR. MONTANA CALLED VIA ZOOM THIS MORNING AND SPOKE WITH THE PT. BED LOW AND LOCKED. CALL LIGHT IN REACH.
--- NOTE | 2023-05-21 10:26 | NUR ---
Pt. is awake in bed and welcomes my visit. Pt. is pleasant and verbalizes that she is expecting to be dicharged. Pt. has know concerns, but welcomes prayer. Prayed with the Pt. Pt. verbalized gratitude for [facility] spiritual care visit.
--- NOTE | 2023-05-21 12:27 | NUR ---
REASSESSMENT PT HAS BEEN RESTING IN BED THROUGHOUT THE MORNING, EXCEPT FOR WHEN SHE GOT UP TO THE SHOWER. HER OVERALL AFFECT HAS BEEN WITHDRAWN. SHE CONTINUES TO HAVE MINIMAL APPETITE, LOTS OF DIFFERENT OPTIONS OFFERED. LUNGS REMAIN CLEAR, RA. OFF OF TELE. DIZZINESS WHEN STANDING UP WITH OT, BUT SBP REMAINED ABOVE 100. PT SAYS SHE WASN'T EATING MUCH BEFORE SHE CAME INTO THE HOSPITAL. ENCOURAGED HER TO EAT SOME OF HER LUNCH TRAY TO SEE IF IT HELPS WITH THE DIZZINESS AND LOW ENERGY. CONTINUING TO MONITOR.
--- NOTE | 2023-05-21 13:14 | NUR ---
PD RN to PT RM ICU10 to d/c CCPD night TX. Pt sitting up in bed, has no complaints, denies pain or discomfort at her PD catheter exit site. Informed me that dressing was just changed the night prior. She stated taht she is on a full liquid diet and is not experiencing any nausea or vomiting. She mentioned that she may be discharging home later today and this was later confirmed by her bedside RN. PT d/c from CCPD tx at approx 0900am. No complciations or complaints, effluent fluid was clear without any cloudiness or fibrin noted. Total UF: 1187mL, Idrain vol: 105mL, Avg dwell: 0:50, Lost Dwell: 1:53.
--- NOTE | 2023-05-21 16:30 | NUR ---
PD RN TO PT RM ICU10 AT APPROX 1600PM TO PREP AND PRIME MACHINE FOR CCPD NIGHT TX. PT WAS LAYING IN BED TALKING ON THE PHONE WHEN I ENTERED THE ROOM. WHEN ASKED HOW SHE WAS FEELING AND IF SHE WAS EXPEREIENCING ANY COMPLICTAIONS SHE QUIETLY SDAID SHE WAS OK. PT WAS CONNECTED TO CYCLER AT APPROX 1630PM WITHOUT COMPLAINTS OR COMPLICATIONS. I STAYED THROUGH INITIAL DRIAN AND START OF THE 1ST FILL IN ORDER TO ENSURE THERE WERE NO COMPLICATIONS. TREATMENT STARTED WITHOUT ALARMS. PT LEFT WITH CALL LIGHT IN REACH AND BED AT LOWEST POSITION.
--- NOTE | 2023-05-21 16:36 | NUR ---
SHIFT SUMMARY PT CONTINUED TO BE WITHDRAWN TODAY, BUT WILLINGLY WORKED WITH PHYSICAL THERAPY AND OT. SHE ATE A LITTLE BIT OF TURKEY FROM HER LUNCH TRAY AND REPORTED NO DIZZINESS WHEN STANDING WITH PHYSICAL THERAPY THIS AFTERNOON. LUNGS REMAIN CLEAR, RA, HRR, VOIDED USING COMMODE. PERITONEAL DIALYSIS SET UP THIS EVENING AND RUNNING CURRENTLY. CONTINUING TO MONITOR.
--- NOTE | 2023-05-21 17:43 | NUR ---
REPORT FROM LAURA RN, PATIENT TO BE TRANSFERRED TO [facility]
--- NOTE | 2023-05-21 18:49 | NUR ---
TRANSFER PT TRANSFERRED TO 306 VIA WITH RN. REPORT GIVEN TO LUIS PENALOZA. [facility], RN PRESENT AT TRANSFER TO ASSIST WITH MOVING PERITONEAL DIALYSIS MACHINE. PT SETTLED IN NEW ROOM AND TREMAINE NOTIFIED THAT PT WAS IN THE ROOM WITH CREDIT ASSOCIATE RECONNECTING HER.
--- NOTE | 2023-05-21 19:04 | NUR ---
PT RECIEVED ORDERS TO TRANSFER FROM ICU 10 TO [facility]. PT AESEPTICALLY DISCONNECTED AND CAPPED WITH MINI-CAP ON PT END AND FLEXI-CAP ON MACHINE END. ONCE TRANSFERED TO 306, PT RECONNECTED AND THERAPY RESUMED. PT COMFORTABLE IN BED, PT AQUAINTED WITH ROOM. CALL LIGHT SECURED AT LEFT HAND FOR EASY ACCESS. MED FLOOR STAFF AWARE OF OVERNIGHT CCPD THERAPY IN PROGRESS.
[2023-05-21 20:53] LABS: Hematocrit 23.8 % (33.0-51.0); Hemoglobin 7.9 g/dL (11.5-16.0)
[2023-05-22] VITALS (11 sets, daily range): BP systolic 85–118; BP diastolic 42–100
--- NOTE | 2023-05-22 00:17 | NUR ---
DIALYSIS NOTE INSPECTOR HAIRSPRING CALLED IN FOR STAT DISCONNECT. PT WITH ORDERS TO TRANSFER BACK TO ICU. CCPD TX COMPLETED PRESCRIBED. IDRAIN 17ML, TUF 0, AVG DWELL 55 MIN. PT D/C PER P&P, TRANSFER SET CLOSED AND SECURED. HANDOFF REPORT GIVEN TO LUIS JACKSON.
--- NOTE | 2023-05-22 01:30 | NUR ---
REPORT RECEIVED VERIFIED PT UP FROM ICU DIALYSIS STARTED FOR OVER NIGHT TREATMENT. VITAL SIGNS SHOWED PT HAVING LOW BP IN THE 70S. MD WAS NOTIFED AND PT WAS TREATED WITH BOLUS AND MEDICATION. PT ASYMPTOMATIC HR IN THE 80S AND PT STATES SHE IS ONLY TIRED. BP BRIEFLY INCREASED AFTER BOLUS BUT THEN DROPPED INTO 70S. MD AGAIN NOTIFED AND ADDITIONAL BOLUS GIVEN WITH NO POSITIVE RESPONSE. PT STILL ASYMPTOMATIC BUT WAS GIVEN ORDEREDS TO TRANSFER TO ICU TO [facility]. PT TRANSFFERED TO ICU 10
[2023-05-22 03:40] LABS: Hemoglobin 7.7 g/dL (11.5-16.0)
[2023-05-22 04:11] LABS: Magnesium, Blood 1.7 mg/dL (1.6-2.4)
[2023-05-22 04:22] LABS: Albumin, Blood 1.7 g/dL (3.4-5.0); Anion Gap 10 mmol/L (6-16); Blood Urea Nitrogen 56 mg/dL (8-24); Bun/Creatinine Ratio 5.8 (12.0-20.0); CO2, Blood 27 mmol/L (21-32); Calcium, Blood 8.2 mg/dL (8.5-10.1); Chloride, Blood 100 mmol/L (98-108); Creatinine, Blood 9.64 mg/dL (0.40-1.00); Glomerular Filtration Rate 4 (60-); Glucose, Blood 138 mg/dL (70-99); Potassium, Blood 3.6 mmol/L (3.5-5.5); Sodium, Blood 137 mmol/L (136-145)
--- NOTE | 2023-05-22 06:40 | NUR ---
SHIFT SUMMARY: PT RESTING COMFORTABLY IN BED. HE HAS BEEN ALERT AND ORIENTED X 3 BUT CONTINUES TO BE UNCERTIN WHY HE IS HERE. HE DENIES ANY RECOLECTION OF EVENTS LEADING UP TO HOSPITILIZATION. PT'S BLOOD GLUCOSE CONTINUES TO BE LOW IN THE 66-68 RANGE THROUGH THE NIGHT. EVEN WITH THE D5 1/2NS RUNNING AT 75 THROUGH THE NIGHT. BEDSIDE SWALLOW EVAL WAS PREFORMED AT 0000 AND PT TOLORATED LIQUIDS WITHOUT INCIDENT. HE WAS ABLE TO DRINK 8 OZ OF APPLE JUICE AT 0000 AND AGAIN AT 0200. UPON RECHEK OF HIS BG IT WAS [address] MCGUIRE WAS CONTACTED AND HE ORDERED 25 CC OF DEXTROSE 50% AND TO INCREASE THE D5 1/2 NS TO 100 ML/HR. PT NEVER HAD ANY CHANGE IN MENTATION. HE HAS CONTINUED TO DENY ANY N/V, PAIN, OR DIZZINESS. HE HAS BEEN ON ROOM AIR THROUGHOUT THE NIGHT WITH O2 SATURATION > 95%. HIS HEART RATE AND BLOOD PRESSURE HAVE BEEN STABLE WNL.
--- NOTE | 2023-05-22 07:06 | NUR ---
SHIFT SUMMARY: PT BEGAIN THE NIGHT ON THE MEDICAL UNIT. SHE HAD SOME LOW BLOOD PRESSURES WITH SBP IN THE 70'S PER MEDICAL RN. PT WAS TRANSFERED TO THE UNIT AT 0020 WITH AN ORDER FOR LEVOPHED. UPON ARRIVAL PT'S BLOOD PRESSURE WAS STABLE WITH A MAP OF 62. PT'S BLOOD PRESSURE CONTIUNED TO BE STABLE THROUGH THE NIGHT. PT IS RESTING COMFORTABLY IN BED. DENIES ANY PAIN, N/V, OR DIZZINESS. VSS.
[2023-05-22 09:50] LABS: HEPATITIS B SURFACE ANTIBODY 67.09 IU/L
[2023-05-22 12:27] LABS: HEPATITIS A ANTIBODY, IGM Negative (Negative); HEPATITIS B CORE ANTIBODY, IGM Negative (Negative); HEPATITIS B SURFACE ANTIGEN Negative (Negative); HEPATITIS C AB CIA INTERP Negative (Negative); HEPATITIS C ANTIBODY CIA INDEX 0.05 IV
--- NOTE | 2023-05-22 14:29 | NUR ---
DIALYSIS NOTE THERMOSPRAY OPERATOR IN TO SET UP CCPD NIGHT TX PER MD ORDER. REPORT RECIEVED FROM PRIMARY BEDSIDE RN, nilsa, IN ICU. PT RESTING IN BED WITH EYES CLOSED, AND EASY TO WAKE. CCPD TX INITIATED PER P&P FOLLOWING MD ORDERS. DRSG CHANGE COMPLETED, EXIT SITE IN PERFECT CONDITION. TROUBLESHOOTING REVIEWED WITH PRIMARY RN AND DISABILITY EXAMINER NUMBER PROVIDED.
--- NOTE | 2023-05-22 15:17 | NUR ---
PT RESTING IN BED. PD DIALYSIS STARTED. PT HAS BEEN A/O X4 TODAY BUT TIRED. OOB TO CHAIR AND TO BATHROOM A COUPLE TIMES. STEADY ON FEET BUT PREFERS TO GO RIGHT BACK TO BED. BP IMPROVING, MIDODRINE STARTED TODAY. 2L O2 WHILE SLEEPING SPO2 88% WHEN OFF O2. NO OTHER CHANGES, USES CALL LIGHT APPROPRIATELY.
--- NOTE | 2023-05-22 15:49 | NUR ---
ASSUMED CARE REPORT RECIEVED. PT RESTING IN BED QUIETLY AT THIS TIME. WILL CONTINUE TO MONITOR.
--- NOTE | 2023-05-22 23:32 | NUR ---
DIALYSIS NURSE CONTACTED: PT'S PEROTANEAL DIALYSIS MACHINE BEGAIN ALARMING AT 2109 WITH SCREEN READING CHECK PT LINE. FUEL CELL SYSTEMS ENGINEER DIALYSIS NURSE WAS CONTACTED FOR ASSISTANCE. SHE WAS ABLE TO ASSIST IN TROUBLE SHOOTING THE MACHINE OVER THE PHONE. AFTER A FEW UNSUCCESFUL ATTEMPTS AT RESTARTING THE MACHINE SHE INSTRUCTED TO MANUALLY TURN OF THE MACHINE ON THE BACK THE PROGRAM WAS ALMOST FINISHED AND THAT THE DIALYSIS NURSE WOULD COME BY IN THE MORNING TO DISCONNECT THE PT FROM THE MACHINE. I CONFIRMED THE INSTRUCTIONS WITH THE NURSE AND DISCUSSED THE PLAN WITH ICU CHARGE NURSE. PT IS RESTING COMFORTABLY IN BED. VSS.
[2023-05-23] VITALS: BP 99/47
[2023-05-23 03:28] LABS: Hematocrit 27.4 % (33.0-51.0); Hemoglobin 9.3 g/dL (11.5-16.0); Mean Corpuscular HGB Conc 33.9 g/dL (31.5-36.5); Mean Corpuscular Volume 88 fL (80-100); Mean Platelet Volume 9.3 fL (9.1-12.4); Platelet Count 455 K/mm3 (150-400); RDW Coefficient Variation 15.1 % (11.7-14.2); RDW Standard Deviation 47.8 fL (35.1-46.3); White Blood Cell Count 45.68 K/mm3 (4.00-11.30)
[2023-05-23 03:51] LABS: Magnesium, Blood 1.6 mg/dL (1.6-2.4)
[2023-05-23 03:59] LABS: Albumin, Blood 1.6 g/dL (3.4-5.0); Anion Gap 11 mmol/L (6-16); Blood Urea Nitrogen 56 mg/dL (8-24); Bun/Creatinine Ratio 6.2 (12.0-20.0); CO2, Blood 27 mmol/L (21-32); Calcium, Blood 8.5 mg/dL (8.5-10.1); Chloride, Blood 96 mmol/L (98-108); Creatinine, Blood 8.98 mg/dL (0.40-1.00); Glomerular Filtration Rate 4 (60-); Glucose, Blood 99 mg/dL (70-99); Potassium, Blood 3.6 mmol/L (3.5-5.5); Sodium, Blood 134 mmol/L (136-145)
[2023-05-23 04:00] VITALS: BP 127/44
[2023-05-23 04:01] LABS: BAND PERCENT MAN 8 % (0-8); BASOPHILS PERCENT MAN 0 % (0-2); EOSINOPHILS PERCENT MAN 0 % (0-6); LYMPHOCYTES ABSOLUTE MAN 0.91 K/mm3 (0.84-5.20); LYMPHOCYTES PERCENT MAN 2 % (21-46); MONOCYTES ABSOLUTE MAN 1.82 K/mm3 (0.16-1.47); MONOCYTES PERCENT MAN 4 % (4-13); NEUTROPHILS ABSOLUTE MAN 42.93 K/mm3 (1.96-9.15); SEG NEUTROPHILS PERCENT MAN 86 % (41-73); TOTAL CELLS COUNTED 100
--- NOTE | 2023-05-23 06:29 | NUR ---
SHIFT SUMMARY: UPON INITIAL ASSESMENT PT C/O A HEADACHE WITH MILD NAUSEA. SHE WAS ABLE TO COMMUNICATE HER NEEDS. AT THE TIME OF ASSESSMENT PT WAS HYPOTENSIVE WITH MAP<60. DR. MONTANA WAS AT BEDSIDE WAS OK WITH PT RECIEVING HER EVENING DOSE OF MIDODRINE EARLY. PT RESPONDED WELL TO BOTH PAIN AND BLOOD PRESSURE MEDICATION. AT 1920 PT'S DIALYSIS MACHIENE ALARMED WITH CHECK PT LINE. THE CRANK HAND DIALYSIS NURSE WAS CONTACTED AND INSTRUCTIONS WERE GIVEN (SEE PRIOR NOTE). PT SLEPT WELL AND DENIED ANY FURTHER HEADACHES OR NAUSEA. AT 0600 PT WAS AWAKE FOR HER MORNING MEDICATIONS AND C/O A PERSISTENT HEADACHE, PHOTOSENSATIVITY AND DIZZINESS. SHE STATED THAT HER PAIN WAS A 7/10. SHE HAD A DIFFICULT TIME ANSWERING OTHER QUESTIONS AND WAS WORD SEARCHING FOR ANSWERS. A COMPLETE NEURO ASSESMENT WAS PREFORMED. PT HAD NO FOCAL DEFECITS. HER EYES ARE PERRLA AND FACE IS SYMMETRICAL. SHE DENIED ANY N/V. DR. MCGUIRE WAS CONTACTED AND SAID THAT HE WOULD PASS THE INFORMATION ON TO DAY SHIFT AND THAT THERE WAS NOTHING TO DO AT THIS TIME.
[2023-05-23 08:00] VITALS: BP 123/53
--- NOTE | 2023-05-23 10:04 | NUR ---
SHEET CATCHER IN THIS AM TO DISCONNECT PT FROM PD. ALSO OBTAINING CULTURE FROM PD CATH PT'S WBC SPIKED DURING THE NIGHT. DR. WHITNEY AT BEDSIDE THIS AM. BC'S AND CXR DONE. MUST WAIT FOR PD CATH SPECIMEN TO BE OBTAINED BEFORE ABX CAN BE STARTED, WHICH TAKES A COUPLE HOURS. WILL ALSO OBTAIN UA WHEN PT VOIDS. PT IS DROWSY, ORIENTED TO PERSON, PLACE AND DATE. SEEMS PHOTOSENSITIVE BUT DENIES PAIN. DENIES NAUSEA. WILL SLEEP IF UNDISTURBED. PT DECLINES TO GET OOB FOR BREAKFAST AND DOES NOT HAVE AN APPETITE. HAS HICUUPS WELL. BP IMPROVED. NO SIGN OF DISTRESS.
--- NOTE | 2023-05-23 10:09 | NUR ---
DIALYSIS PD DR WHITNEY WANTS TO HAVE CULTURES DONE. PT DRY. INSTILLED 2 L 2.5% DEXTROSE PER DR MONTANA ORDERS. WILL DRAW SAMPE IN 2 HRS. SOULTION CLEAR.
--- NOTE | 2023-05-23 10:48 | NUR ---
DIALYSIS-PD RICARDO SAMPLE FROM PD TUBE PER PROTOCAL. SENT FOR C&S, GRAM STAIN, AND CELL CT. FLUID ALITTLE CLOUDY. ORDERED BY DR MONTANA.
[2023-05-23 11:09] LABS: Automated BF WBC Count 1.466 K/mm3 (0-999)
[2023-05-23 11:24] LABS: Body Fluid WBC Count 1466 /mm3 (0-999)
[2023-05-23 11:47] LABS: RBC Count, Body Fluid 2 /mm3 (0-0)
--- NOTE | 2023-05-23 12:15 | NUR ---
DIALYSIS PD 0725 PT QUIET IN HER ROOM. SHE HAS THE HICCUPS. IS NOT RESPONDING VERBALLY TO ANYONE. EYES OPEN. DC'ED HER PD TREATMENT PER PROTOCAL. ID [id number], UF 1987ML, AVERAGE TIME 1:10. FLUID LOOKED CLEAR.
[2023-05-23 12:20] VITALS: BP 91/49
--- NOTE | 2023-05-23 12:22 | NUR ---
PT DENIES FEELING IF SHE NEEDS TO VOID. BLADDER SCAN SHOWS 173ML. GOT PT TO BSC WITH 2 PERSON ASSIST AND GAIT BELT. PT UNABLE TO VOID AND GETS HERSELF BACK TO BED. PT C/O ABD AND UNABLE TO ASSIST WITH REPOSITIONING IN BED TO GET LINENS AND BRIEF SITUATED. PT WILL NOT ALLOW STRAIGHT CATH FOR UA. DR. WHITNEY AWARE. RESULTS FOR CULTURE FROM PD CATH SHOWN TO DR. WHITNEY WELL.
[2023-05-23 12:34] LABS: Appearance, Body Fluid Hazy (Clear); Color, Body Fluid No color (None-Yellow); Total Cell Count, Body Fluid 100
--- NOTE | 2023-05-23 15:33 | NUR ---
DIALYSIS-PD 3 IN AND FLUSH COMPLETED. FAMILY IN ROOM WITH HER. MIGUELLE MORE VERBAL. FLUID CLEAR.
[2023-05-23 16:00] VITALS: BP 119/55
--- NOTE | 2023-05-23 18:08 | NUR ---
SUMMARY PT IS MORE RESPONSIVE THE DAY GOES ON AND VERBAL RESPONSE IS QUICKER. STATES HER ABD IS NOT PAINFUL THIS EVENING IT WAS EARLIER. COD CLERK DID A WASH WITH PD CATH TODAY, WILL BE CONNECTING TONIGHT FOR REGULAR PD TREATMENT. BP IMPROVED. POOR APPETITE. NO SIGN OF DISTRESS.
--- NOTE | 2023-05-23 19:17 | NUR ---
DIALYSIS PD PT CONNECTED TO PD TX. HAS 2L BAG WITH ANTIBIOTICS. PT CONTINUES WITH THE HICCOUPS. DISCUSSED ALARMS WITH DEEP SMITH. SITE CLEAR
[2023-05-23 20:00] VITALS: BP 108/45
[2023-05-24] VITALS (73 sets, daily range): BP systolic 49–124; BP diastolic 33–94
[2023-05-24 03:27] LABS: Hematocrit 30.8 % (33.0-51.0); Hemoglobin 10.4 g/dL (11.5-16.0); Mean Corpuscular HGB 29.5 pg (26.0-34.0); Mean Corpuscular HGB Conc 33.8 g/dL (31.5-36.5); Mean Corpuscular Volume 87 fL (80-100); Mean Platelet Volume 9.7 fL (9.1-12.4); NRBC ABSOLUTE 0.03 K/mm3 (0.00-0.02); NRBC Auto 0.1 /100 WBC (0.0-0.2); Platelet Count 519 K/mm3 (150-400); RDW Coefficient Variation 15.1 % (11.7-14.2); RDW Standard Deviation 47.7 fL (35.1-46.3); Red Blood Cell Count 3.53 M/mm3 (3.80-5.20)
[2023-05-24 03:31] LABS: White Blood Cell Count 55.26 K/mm3 (4.00-11.30)
[2023-05-24 03:42] LABS: Albumin, Blood 1.2 g/dL (3.4-5.0); Anion Gap 17 mmol/L (6-16); Blood Urea Nitrogen 54 mg/dL (8-24); Bun/Creatinine Ratio 6.9 (12.0-20.0); CO2, Blood 23 mmol/L (21-32); Calcium, Blood 7.2 mg/dL (8.5-10.1); Chloride, Blood 92 mmol/L (98-108); Creatinine, Blood 7.82 mg/dL (0.40-1.00); Glomerular Filtration Rate 5 (60-); Glucose, Blood 337 mg/dL (70-99); Magnesium, Blood 1.7 mg/dL (1.6-2.4); Phosphorus, Blood 4.7 mg/dL (2.5-4.9); Potassium, Blood 3.2 mmol/L (3.5-5.5); Sodium, Blood 132 mmol/L (136-145)
[2023-05-24 05:25] LABS: BAND PERCENT MAN 11 % (0-8); BASOPHILS PERCENT MAN 0 % (0-2); EOSINOPHILS PERCENT MAN 0 % (0-6); LYMPHOCYTES ABSOLUTE MAN 0.55 K/mm3 (0.84-5.20); LYMPHOCYTES PERCENT MAN 1 % (21-46); MONOCYTES ABSOLUTE MAN 1.65 K/mm3 (0.16-1.47); MONOCYTES PERCENT MAN 3 % (4-13); NEUTROPHILS ABSOLUTE MAN 53.04 K/mm3 (1.96-9.15); SEG NEUTROPHILS PERCENT MAN 85 % (41-73); TOTAL CELLS COUNTED 100
--- NOTE | 2023-05-24 06:36 | NUR ---
SHIFT SUMMARY: PT WAS STARTED ON PERITONEAL DIALYSIS AT THE START OF SHIFT LAST NIGHT. SHE WAS ABLE TO TAKE HER PM MEDICATIONS AND SLEEP FOR MOST OF THE NIGHT. AT 0130 SHE WOKE UP TO NAUSEA WITH ONE EPISODE OF LIGHT GREEN EMESSIS. THER WAS NO BLOOD NOTED IN THE EMESSIS. AT THIS TIME PT WAS ALSO C/O PAIN 8/10 IN HER ABDOMEN. PT WAS GIVEN PAIN AND NAUSEA MEDICATION AND RESPONDED WELL. UPON PAIN RECHECK SHE WAS SLEEPING COMFORTABLY IN BED. PT WAS ABLE TO SLEEP THE REST OF THE NIGHT UNTIL 0600. PT IS CURRENTLY A&OX4. SHE DEINIES ANY PAIN OR N/V. SHE IS C/O HICCUPS, A DOSE OF AMPHOJEL WAS GIVEN AND HELPED RELIEVE THOSE. PT'S LABS THIS AM HAD A CRITICAL WBC OF 55. DR. MONTANA AWARE. PT SAFETY MAINTAINED. VSS.
--- NOTE | 2023-05-24 07:47 | NUR ---
DIALYSIS PD PT SLEEPING. NO ALARMS THROUGH THE NIGHT. DARK YELLOW, FIBRIN, SL CLOUDY (IMPROVED FROM YESTERDAY). DC TX PER PROTOCAL. ID [id number], UF [id number] ML, 1:05 AVERAGE DWELL.
--- NOTE | 2023-05-24 08:31 | NUR ---
AM NOTE... ASSUMED CARE OF PT AT 0700. DURING THIS ASSESSMENT THE PT WAS HYPOTENSIVE WITH MAPS IN THE 40'S. PROVIDER WAS CALLED AND ARRIVED AT THE BEDSIDE QUICKLY. THE PT WAS ABLE TO STATE HER NAME/ BUT WAS VERY LETHARGIC. SHE IS IN SR IN THE 80'S, NO EDEMA NOTED ON THIS ASSESSMENT. SHE IS ON 2L NC WITH O2 SATS>90%. L/S CLEAR T/O DIM IN THE BASES. BT PRESENT AND HYPOACTIVE, ABD IS VERY TENDER, PT IS C/O OF 8/[address] WHITNEY AT THE BEDSIDE TO ASSESS THE PT, THE PT'S DAUGHTER WAS CALLED AND IS ON THE WAY INTO THE HOSPITAL. PLANS FOR DR. WHITNEY, THE PT AND HER DAUGHTER TO DISCUSS THE PT'S PLAN OF CARE GOING FORWARD. WILL CONTINUE TO MONITOR.
--- NOTE | 2023-05-24 09:35 | NUR ---
DIALYSIS/PD WENT TO PT'S ROOM TO GET C&S OF DWELLING PD SOLUTION. [facility] STAFF IN PROCESS OF PLACING A PIC LINE DUE TO PT'S BP 68/50. WILL WAIT UNTIL THEY HAVE COMPLETED THE PROCEDURE TO GET MY SAMPLE.
--- NOTE | 2023-05-24 11:35 | NUR ---
DIALYSIS PD TOOK LAB SAMPLE FROM PD CATH PER PROTOCAL. FLUID CLEAR. WALKED SAMPLE TO LAB.
[2023-05-24 11:44] LABS: Source, Urine Foley catheter
[2023-05-24 12:14] LABS: Automated BF WBC Count 0.228 K/mm3 (0-999)
[2023-05-24 12:15] LABS: Body Fluid WBC Count 228 /mm3 (0-999)
[2023-05-24 12:27] LABS: Appearance, Urine Clear (Clear); Blood, Urine Neg (Neg); Color, Urine Yellow (P-Yellow); Glucose Qualitative, Urine Neg (Neg); Ketones, Urine Neg (Neg); Leukocyte Esterase, Urine 1+ (Neg); Nitrite, Urine Neg (Neg); Protein, Urine 2+ (Neg); Specific Gravity, Urine 1.015 (1.003-1.022); Urobilinogen, Urine NORM (Normal)
[2023-05-24 12:34] LABS: Bilirubin, Urine 2+ (Neg)
[2023-05-24 12:38] LABS: Granular Casts 0-2 /lpf (0)
[2023-05-24 12:39] LABS: Red Blood Cells, Urine 0-2 /hpf (0-2)
[2023-05-24 12:40] LABS: Squamous Epithelial Cells Rare /hpf (Few)
[2023-05-24 12:41] LABS: RBC Count, Body Fluid 1 /mm3 (0-0)
[2023-05-24 12:41] LABS: Amorphous Light (0-Heavy); Transitional Epithelial Cells Rare /hpf (0-Rare)
[2023-05-24 12:42] LABS: Bacteria Few /hpf
[2023-05-24 12:55] LABS: Appearance, Body Fluid Clear (Clear); Color, Body Fluid No color (None-Yellow); Total Cell Count, Body Fluid 100
--- NOTE | 2023-05-24 13:08 | NUR ---
PT UPDATE... THE PT CONTINUED TO BE HYPOTENSIVE, DR. WHITNEY AT THE BEDSIDE TO ASSESS THE PT, ORDERS FOR A PICC LINE AND LEVOPHED WERE OBTAINED. A PICC LINE WAS PLACED AND LEVOPHED WAS STARTED. THE LEVOPHED WAS TITRATED UP TO 10MCG/MIN, THE PROVIDER WAS NOTIFIED. NEW ORDERS FOR A BANSAL AND AN LR BOLUS WITH CONTINUOUS FLUIDS WAS GIVEN. THE TEMP BANSAL WAS PLACED WNL. THE PT'S FAMILY HAS BEEN AT THE BEDSIDE. THE PT CONTINUES TO C/O OF ABD PAIN AND A HEAD ACHE. WILL CONTINUE TO MONITOR.
--- NOTE | 2023-05-24 17:50 | NUR ---
SHIFT SUMMARY... THE PT CONTINUES TO BE ON LEVOPHED RUNNING AT 6MCG/MIN TO KEEP MAPS>65. CLINIMIX WAS STARTED AT 100MLS/HR. THE PT HAS BEEN MEDICATED FOR PAIN SEVERAL TIMES PER EMAR WITH GOOD RESULTS. TEMP BANSAL PLACED, TMAX OF 99.9. PT CONTINUES TO BE ON 2L NC WITH O2 SATS>95%. THE PT IS MORE AWAKE AND ALERT THIS EVENING. SHE HAS NOT HAD A BM THIS SHIFT. BANSAL IS PATENT AND DRAINED 75MLS OF URINE TO GRAVITY. CALL LIGHT IN REACH WILL CONTINUE TO MONITOR UNTIL REPORT IS GIVEN TO ONCOMING RN.
--- NOTE | 2023-05-24 19:00 | NUR ---
DIALYSIS PD PT VERY SLEEPY. STILL HICCOUPS WHEN AWAKE. CONNECTED W/O DIFFICULTY. TALKED TO RN ABOUT ALARMS AND CALLING ME WITH AHY PROBLEMS
[2023-05-25] VITALS (85 sets, daily range): BP systolic 71–163; BP diastolic 31–97
[2023-05-25 03:50] LABS: Hematocrit 36.7 % (33.0-51.0); Hemoglobin 12.4 g/dL (11.5-16.0); Mean Corpuscular HGB 29.7 pg (26.0-34.0); Mean Corpuscular HGB Conc 33.8 g/dL (31.5-36.5); Mean Corpuscular Volume 88 fL (80-100); NRBC ABSOLUTE 0.04 K/mm3 (0.00-0.02); NRBC Auto 0.1 /100 WBC (0.0-0.2); Platelet Count 436 K/mm3 (150-400); RDW Coefficient Variation 14.7 % (11.7-14.2); RDW Standard Deviation 47.3 fL (35.1-46.3); Red Blood Cell Count 4.17 M/mm3 (3.80-5.20)
[2023-05-25 04:11] LABS: White Blood Cell Count 70.72 K/mm3 (4.00-11.30)
[2023-05-25 04:12] LABS: Magnesium, Blood 1.7 mg/dL (1.6-2.4)
[2023-05-25 04:22] LABS: Alanine Aminotransfer (ALT/SGP 13 U/L (12-78); Albumin, Blood 0.9 g/dL (3.4-5.0); Albumin/Globulin Ratio 0.2 (0.8-1.8); Alk Phos 145 U/L (50-136); Anion Gap 14 mmol/L (6-16); Aspartate Aminotrans (AST/SGOT 23 U/L (12-37); Bilirubin, Direct <0.1 mg/dL (0.0-0.3); Bilirubin, Indirect Unable to Calculate mg/dL (0.1-0.7); Bilirubin, Total 0.2 mg/dL (0.1-1.0); Blood Urea Nitrogen 52 mg/dL (8-24); Bun/Creatinine Ratio 8.4 (12.0-20.0); CO2, Blood 22 mmol/L (21-32); Calcium, Blood 7.4 mg/dL (8.5-10.1); Chloride, Blood 92 mmol/L (98-108); Creatinine, Blood 6.18 mg/dL (0.40-1.00); Glomerular Filtration Rate 7 (60-); Glucose, Blood 394 mg/dL (70-99); Phosphorus, Blood 5.4 mg/dL (2.5-4.9); Potassium, Blood 3.7 mmol/L (3.5-5.5); Sodium, Blood 128 mmol/L (136-145); Total Protein, Blood 4.9 g/dL (6.4-8.2); Vancomycin, Random 13.9 ug/mL
[2023-05-25 04:24] LABS: BAND PERCENT MAN 8 % (0-8); BASOPHILS PERCENT MAN 0 % (0-2); EOSINOPHILS PERCENT MAN 0 % (0-6); LYMPHOCYTES ABSOLUTE MAN 1.41 K/mm3 (0.84-5.20); LYMPHOCYTES PERCENT MAN 2 % (21-46); MONOCYTES ABSOLUTE MAN 2.12 K/mm3 (0.16-1.47); MONOCYTES PERCENT MAN 3 % (4-13); MYELOCYTE ABSOLUTE MAN 2.12 K/mm3 (0.00-0.00); MYELOCYTE PERCENT MAN 3 % (0-0); NEUTROPHILS ABSOLUTE MAN 65.06 K/mm3 (1.96-9.15); SEG NEUTROPHILS PERCENT MAN 84 % (41-73); TOTAL CELLS COUNTED 100
--- NOTE | 2023-05-25 06:00 | NUR ---
SHIFT SUMMARY: PT STARTED THE SHIFT ON 12 MGC/MIN OF LEVOPHED. SHE REMAINED HYPOTENSIVE AND DID NOT RESPOND TO TITRATION. AT 2300 SHE REQUIRED VASOPRESSION IN ORDER TO MAINTAIN HER MAP > 65. PT'S BLOOD PRESSURE STABALIZED AND I WAS ABLE TO TITRATE THE LEVOPHED DOWN TO 12. SHE WAS ABLE TO SLEEP MOST OF THE NIGHT AND RESPONDED WELL DURING ASSESMENTS. PT STATED THAT SHE "DOES NOT WANT TO BE REPOSITIONED, AND JUST WANTS TO SLEEP." A QUIET ENVIROMENT WAS MAINTAINED AND SHE WAS ABLE TO SLEEP COMFORTABLY. PT DENIED ANY N/V OR PAIN THROUGH THE NIGHT. HER HR AND SPO2 WERE STABLE.
--- NOTE | 2023-05-25 07:47 | NUR ---
DIALYSIS NOTE CCPD TX COMPLETED PRESCRIBED. IDRAIN 367ML, TUF 1129, AVG DWELL 1:10. PT D/C PER P&P, TRANSFER SET CLOSED AND SECURED. HANDOFF REPORT GIVEN TO PRIMARY BEDSIDE IP ARCHITECT.
--- NOTE | 2023-05-25 08:12 | NUR ---
DIALYSIS NOTE DIALYSIS AT BEDSIDE TO COLLECT PD EFFLUENT SAMPLE FOR CELL COUNT PER MD ORDER. SAMPLE COLLECTED PER POLICY, PT TOLERATED WELL. TRANSFER SET CLOSED, CAPPED AND SECURE. REPORT GIVEN TO LUIS ELIZONDO
[2023-05-25 08:35] LABS: Automated BF WBC Count 0.087 K/mm3 (0-999)
[2023-05-25 08:36] LABS: Body Fluid WBC Count 87 /mm3 (0-999)
--- NOTE | 2023-05-25 08:50 | NUR ---
ASSUMED CARE / DR SMITH: REPORT RECEIVED FROM LUIS HERRERA. ASSUMED CARE OF THIS PT AT APPROX 0700. ON ASSESSMENT, THE PT IS RESTING QUIETLY & AWAKENS EASILY TO VERBAL STIMULUS. SHE IS A&O TO ALL, SOFT SPOKEN & SLOW TO RESPOND AT TIMES. LS DIM IN BASES, PT ON 2L NC W/ O2 SATS > 92%. MONITOR SHOWS SR W/ HR 90s, LEVOPHED & VASOPRESSIN INFUSING FOR PERSISTANT HYPOTENSION - SEE FLOWSHEET FOR TITRATIONS. PT UNABLE TO TOLERATE PO INTAKE THIS MORNING, VOMITING NUMEROUS TIMES AFTER ATTEMPTING PO TYLENOL FOR HEADACHE. PO MEDICATIONS HELD. TEMP BANSAL PATENT/ DRAINING SCANT AMNTS YELLOW URINE. SKIN OVERALL INTACT, FRAGILE. Q2H REPOSITIONING TO MAINTAIN SKIN INTEGRITY. THIS RN HAS NOTIFIED PALLIATIVE CARE RN, BRAD, ABOUT PT's DECLINE IN CONDITION - SHE WILL BE IN CONTACT W/ PT & FAMILY TO PROVIDE SUPPORT PRN. PROVIDER AT BEDSIDE THIS AM TO EVAL PT. DISCUSSED INCREASING VASOPRESSOR REQUIREMENTS, DIRECTOR INFORMATICS CONSULT ORDERED. ADDITIONAL ONE TIME DOSE INSULIN COVERAGE ORDERED TO MANAGE HYPERGLYCEMIA. ORDERS TO GIVE NOON DOSE OF SOLU-CORTEF EARLY. ABX CHANGED. NO OTHER CHANGES AT THIS TIME. WILL CONTINUE TO MONITOR & UPDATE NEEDED.
[2023-05-25 09:04] LABS: Appearance, Body Fluid Clear (Clear); Color, Body Fluid L Yellow (None-Yellow); RBC Count, Body Fluid 1 /mm3 (0-0)
[2023-05-25 09:10] LABS: Triglycerides 385 mg/dL (30-160)
[2023-05-25 09:11] LABS: Total Cell Count, Body Fluid 100
--- NOTE | 2023-05-25 10:53 | NUR ---
Gloria is a 78 year old woman with ESRD. She is on peritoneal dialysis. She has a history of gout, osteoarthritis, HTN, adrenal insufficiency. She was found down by her son on 05/19 with dark emesis and dark loose stool, and was brought to ED. She developed hypotension shortly after admission, and it has continued to worsen. She's currently on an increasing amount of levophed. She is currently being evaluated for bacterial peritonitis. Spent time with pt this morning, she is awake and alert. Bedside RN states the pt has moments of somnolence but is alert most of the time. She c/o headache, which has been ongoing since arrival to hospital. Spoke to pt's daughter Gloria by phone, she states she's planning to come in this afternoon. She states she's aware her "mom is pretty sick", and is hopeful for improvement with antibiotics. At this time, will continue to offer supportive visits, and remain available to pt and family.
--- NOTE | 2023-05-25 16:32 | NUR ---
DIALYSIS NOTE CONSUMER BANKER IN TO SET UP CCPD NIGHT TX PER MD ORDER. REPORT RECIEVED FROM PRIMARY BEDSIDE RN, CARO, IN ICU. Pt JUST RETUNRED FROM CT. PT C/O N/V, PRIMARY RN MEDICATED. IN & OUT FLUSHES X3 COMPLETED PER MD ORDER AND CCPD TX NITIATED PER P&P FOLLOWING MD ORDERS. DRSG CHANGE COMPLETED, EXIT SITE IN PERFECT CONDITION. TROUBLESHOOTING REVIEWED WITH PRIMARY RN AND SNOW TECHNICIAN NUMBER PROVIDED.
--- NOTE | 2023-05-25 17:23 | NUR ---
Met with pt again this evening, along with her daughter. Dr. Kent met us out in the lobby, and daughter Gloria asked questions. She v/u that the patient is very ill. Upon speaking to the patient, she relayed to me she would not want any heroic measures, remaining a DNR, and she would not want to be intubated either. She very clearly stated, "If they run out of ways to keep me alive, then let me go." Her daughter took a Palliative card for later,
--- NOTE | 2023-05-25 18:26 | NUR ---
SHIFT SUMMARY: PT REMAINS A&O TO ALL, PLEASANT & COOPERATIVE W/ CARE. OVERALL IS DROWSY & DOES NOT WANT MANY CARE MEASURES COMPLETED. LS DIM IN BASES, PT ON 4L NC W/ O2 SATS > 92% ON AVG. DIFFICULT TO OBTAIN ACCURATE SPO2 READINGS AT TIMES R/T COOL DIGITS. MONITOR SHOWS SR W/ HR 90s, LEVOPHED CURRENTLY INFUSING AT 20 MCG/MIN W/ VASOPRESSIN ADJUNCT. PT CONTINUES TO HAVE POOR APPETITE W/ OCCASIONAL NAUSEA, MEDS PER EMAR. NO BM THIS SHIFT. TEMP BANSAL REMOVED THIS EVENING AFTER ONLY 5ML URINE OUTPUT NOTED THIS SHIFT. SKIN CONDITION OVERALL FRAGILE, Q2H REPOSITIONING TO MAINTAIN SKIN INTEGRITY. DR DINERO HAS AGAIN ROUNDED ON THIS PT & ORDERS FOR ALBUMIN HAVE BEEN PLACED. HE WOULD LIKE A CALL W/ PT UPDATE IN APPROX 1 HR. WILL CONTINUE TO MONITOR & REPORT OFF TO ONCOMING RN.
--- NOTE | 2023-05-25 19:30 | NUR ---
ASSUMPTION OF CARE BEDSIDE SHIFT REPORT RECEIVED FORM DAY SHIFT RN. PT ALERT AND ORIENTED, ANSWERS QUESTIONS APPROPRIATELY. PT MOVES ALL EXTREMITIES EQUALLY BILATERALLY. HR 90'S SINUS, LEVOPHED AND VASOPRESSIN INFUSING FOR PERSISITENT HYPOTENSION, SEE FLOWSHEET FOR TITRATIONS, GOAL FOR MAP >65. PT ON 4LPM VIA NC, OXYGEN SATURATION >92%. PD IN PROGRESS, PT DENIES ABDOMINAL PAIN AT THIS TIME. PICC LINE IN PLACE TO JONO INFUSING, POWETGLIDE TO ABILIO INFUSING. LEVOPHED INFUSING AT 20MCG/MIN, VASOPRESSIN INFUSING AT 0.04UNITS/MIN, CLINIMIX INFUSING PER EMAR, NS TKO. BED IN LOWEST POSITION, CALL LIGHT WITHIN REACH. CARE CONTINUES.
--- NOTE | 2023-05-25 21:46 | NUR ---
PT UPDATE CALLED AND SPOKE WITH DR. BAR CARDENASING PT BLOOD PRESSURE ONCE ALBUMIN FINISHED. GOAL FOR MAP TO REMAIN >65.
[2023-05-26] VITALS (99 sets, daily range): BP systolic 49–140; BP diastolic 21–111
[2023-05-26 04:01] LABS: Hematocrit 31.6 % (33.0-51.0); Hemoglobin 10.6 g/dL (11.5-16.0); Mean Corpuscular HGB 29.5 pg (26.0-34.0); Mean Corpuscular HGB Conc 33.5 g/dL (31.5-36.5); Mean Corpuscular Volume 88 fL (80-100); Mean Platelet Volume 10.4 fL (9.1-12.4); NRBC ABSOLUTE 0.22 K/mm3 (0.00-0.02); NRBC Auto 0.3 /100 WBC (0.0-0.2); Platelet Count 303 K/mm3 (150-400); RDW Coefficient Variation 14.4 % (11.7-14.2); RDW Standard Deviation 46.4 fL (35.1-46.3); Red Blood Cell Count 3.59 M/mm3 (3.80-5.20)
[2023-05-26 04:03] LABS: White Blood Cell Count 78.83 K/mm3 (4.00-11.30)
[2023-05-26 05:31] LABS: BAND PERCENT MAN 9 % (0-8); BASOPHILS ABSOLUTE MAN 0.78 K/mm3 (0.00-0.23); BASOPHILS PERCENT MAN 1 % (0-2); EOSINOPHILS PERCENT MAN 0 % (0-6); LYMPHOCYTES ABSOLUTE MAN 3.15 K/mm3 (0.84-5.20); LYMPHOCYTES PERCENT MAN 4 % (21-46); METAMYELOCYTE ABSOLUTE MAN 3.15 K/mm3 (0.00-0.00); METAMYELOCYTE PERCENT MAN 4 % (0-0); MONOCYTES ABSOLUTE MAN 3.15 K/mm3 (0.16-1.47); MONOCYTES PERCENT MAN 4 % (4-13); MYELOCYTE ABSOLUTE MAN 2.36 K/mm3 (0.00-0.00); MYELOCYTE PERCENT MAN 3 % (0-0); NEUTROPHILS ABSOLUTE MAN 66.21 K/mm3 (1.96-9.15); SEG NEUTROPHILS PERCENT MAN 75 % (41-73); TOTAL CELLS COUNTED 100
[2023-05-26 05:49] LABS: Magnesium, Blood 1.8 mg/dL (1.6-2.4)
[2023-05-26 05:50] LABS: Albumin, Blood 1.1 g/dL (3.4-5.0); Anion Gap 13 mmol/L (6-16); Blood Urea Nitrogen 56 mg/dL (8-24); Bun/Creatinine Ratio 10.4 (12.0-20.0); CO2, Blood 22 mmol/L (21-32); Calcium, Blood 7.3 mg/dL (8.5-10.1); Chloride, Blood 88 mmol/L (98-108); Creatinine, Blood 5.38 mg/dL (0.40-1.00); Glomerular Filtration Rate 8 (60-); Glucose, Blood 315 mg/dL (70-99); Phosphorus, Blood 6.4 mg/dL (2.5-4.9); Potassium, Blood 3.5 mmol/L (3.5-5.5); Sodium, Blood 123 mmol/L (136-145); Vancomycin, Random 6.7 ug/mL
--- NOTE | 2023-05-26 05:58 | NUR ---
SHIFT SUMMARY PT RESTING IN BED, SLEEPING BUT AROUSABLE. PT FOLLOWS COMMANDS, ANSWERS QUESTIONS APPROPRIATELY, MOVES ALL EXTREMITIES EQUALLY BILATERALLY. HR 90'S SINUS. LEVOPHED INFUSING AT 10MCG/MIN, VASOPRESSIN INFUSING AT 0.04UNITS/MIN FOR PERSISTENT HYPOTENSION, SEE FLOWSHEET FOR TITRATIONS. PT ON 2LPM VIA NC, OXYGEN SATURATION >92%. PT DENIES SOB OR PAIN THROUGHOUT THIS SHIFT. PD COMPLETED THIS SHIFT. ABDOMEN SOFT NONTENDER. PICC LINE IN PLACE TO JONO INFUSING, POWERGLIDE IN PLACE TO ABILIO SL. BED IN LOWEST POSITION, CALL LIGHT WITHIN REACH. CARE CONTINUES.
--- NOTE | 2023-05-26 07:30 | NUR ---
DIALYSIS NOTE CCPD TX COMPLETED PRESCRIBED. IDRAIN 1796ML, TUF 424, AVG DWELL 1:11. EFFLUENT SAMPLE COLLECTED FROM DRAIN BAG FOR CELL COUNT PER MD ORDER. SAMPLE COLLECTED PER POLICY, PT TOLERATED WELL. TRANSFER SET CLOSED, CAPPED AND SECURE. REPORT GIVEN TO LUIS ELIZONDO
[2023-05-26 08:27] LABS: Automated BF WBC Count 0.009 K/mm3 (0-999)
--- NOTE | 2023-05-26 08:30 | NUR ---
ASSUMED CARE / DR SMITH: REPORT RECEIVED FROM LUIS MAJOR. ASSUMED CARE OF THIS PT AT APPROX 0700. ON ASSESSMENT, THE PT IS RESTING QUIETLY AFTER RECEIVING PRN MORPHINE PER EMAR FOR ABD PAIN. SHE AWAKENS EASILY TO VERBAL STIMULUS, IS A&O TO ALL AT THAT TIME. LS CLEAR, DIM IN BASES. PT ON 2L NC W/ O2 SATS > 90% ON AVG. MONITOR SHOWS SR-ST W/ HR 90-100s, LEVOPHED CURRENTLY INFUSING AT 6 MCG/MIN & VASOPRESSIN INFUSING ADJUNCT. HYPOACTIVE BT x4, POOR APPETITE. ANURIC, MAKES VERY LITTLE URINE AT BASELINE R/T PD. SKIN OVERALL FRAGILE, Q2H REPOSITIONING TO MAINTAIN SKIN INTEGRITY. DR SMITH AT BEDSIDE THIS AM. HE HAS INCREASED THE PT's INSULIN COVERAGE TO MEDIUM COVERAGE SCALE & ADDED INSULIN GLARGINE WELL. NO OTHER CHANGES AT THIS TIME. WILL CONTINUE TO MONITOR & UPDATE NEEDED.
[2023-05-26 08:48] LABS: Body Fluid WBC Count 9 /mm3 (0-999)
[2023-05-26 09:00] LABS: Appearance, Body Fluid Clear (Clear); Color, Body Fluid No color (None-Yellow); RBC Count, Body Fluid 1 /mm3 (0-0)
[2023-05-26 09:31] LABS: Total Cell Count, Body Fluid 80
--- NOTE | 2023-05-26 10:30 | NUR ---
ICU ROUNDING: POC FOR THIS PT DISCUSSED DURING AM ROUNDS. PT HYPONATREMIC ON AM LABS; LESLEE, FIELD AUTOMOBILE ADJUSTER, STS THAT CLINIMIX CAN BE ADJUSTED FOR THIS & WILL CONTACT DR MONTANA FOR ORDERS. DR SAVAGE WOULD LIKE ANOTHER DOSE OF ALBUMIN GIVEN TO THIS PT WELL. NO OTHER CAHNGES AT THIS TIME.
--- NOTE | 2023-05-26 15:41 | NUR ---
Spoke to pt's daughter Gloria by phone this afternoon. She has been sitting at pt's bedside, reports the patient hasn't been waking up today. Pt is being followed by change management specialist as well. WBC count has increased again since yesterday. Plan to talk with Gloria again tomorrow morning with an update, as she works until 1500 daily.
--- NOTE | 2023-05-26 15:58 | NUR ---
DIALYSIS NOTE STONEWORK TRACER IN TO SET UP CCPD NIGHT TX PER MD ORDER. REPORT RECIEVED FROM PRIMARY BEDSIDE RN, CARO, IN ICU. PT RESTING IN BED WITH EYES CLOSED, AND EASY TO WAKE. CCPD TX INITIATED PER P&P FOLLOWING MD ORDERS. DRSG CHANGE COMPLETED, EXIT SITE IN PERFECT CONDITION. TROUBLESHOOTING REVIEWED WITH PRIMARY RN AND BULLARD OPERATOR NUMBER PROVIDED.
--- NOTE | 2023-05-26 17:00 | NUR ---
SHIFT SUMMARY: NO ACUTE CHANGES SINCE PRIOR UPDATES. PT REMAINS DROWSY, SLEEPING INTERMITTENTLY FOR MOST OF THIS SHIFT. AWAKENS TO VERBAL STIMULI & IS ABLE TO FOLLOW DIRECTIONS AT THAT TIME. LS DIM IN BASES, PT ON 2-3L NC W/ O2 SATS > 905 ON AVG. MONITOR SHOWS SR-ST W/ HR 90-100s, LEVOPHED INFUSING AT 4 MCG/MIN & VASOPRESSIN INFUSING ADJUNCT. VASOPRESSIN TRIALED OFF W/ MAP DROPPING TO < 60. PT HAS POOR APPETITE & IS ABLE TO TOLERATE MINIMAL INTAKE PRIOR TO GAGGING OR LOSING APPETITE ENTIRELY. SHE HAS HAD ONE LARGE, LOOSE, DARK BROWN BM, PARTIALLY INCONTINENT. NO URINARY VOID THIS SHIFT, GENERALLY ANURIC R/T CHRONIC PD. SKIN OVERALL FRAGILE, INTACT. Q2H REPOSITIONING TO MAINTAIN SKIN INTEGRITY. WILL CONTINUE TO MONITOR & REPORT OFF TO ONCOMING RN.
[2023-05-27] VITALS (88 sets, daily range): BP systolic 55–167; BP diastolic 14–102
[2023-05-27 03:54] LABS: Hemoglobin 12.7 g/dL (11.5-16.0); Mean Corpuscular HGB 30.6 pg (26.0-34.0); Mean Corpuscular HGB Conc 34.3 g/dL (31.5-36.5); Mean Corpuscular Volume 89 fL (80-100); Mean Platelet Volume 10.8 fL (9.1-12.4); NRBC ABSOLUTE 4.78 K/mm3 (0.00-0.02); NRBC Auto 5.4 /100 WBC (0.0-0.2); Platelet Count 250 K/mm3 (150-400); RDW Coefficient Variation 14.8 % (11.7-14.2); RDW Standard Deviation 47.9 fL (35.1-46.3); Red Blood Cell Count 4.15 M/mm3 (3.80-5.20)
[2023-05-27 04:07] LABS: White Blood Cell Count 89.07 K/mm3 (4.00-11.30)
[2023-05-27 04:55] LABS: BAND PERCENT MAN 30 % (0-8); BASOPHILS PERCENT MAN 0 % (0-2); EOSINOPHILS PERCENT MAN 0 % (0-6); METAMYELOCYTE ABSOLUTE MAN 1.78 K/mm3 (0.00-0.00); METAMYELOCYTE PERCENT MAN 2 % (0-0); MONOCYTES ABSOLUTE MAN 2.67 K/mm3 (0.16-1.47); MONOCYTES PERCENT MAN 3 % (4-13); MYELOCYTE ABSOLUTE MAN 4.45 K/mm3 (0.00-0.00); MYELOCYTE PERCENT MAN 5 % (0-0); NEUTROPHILS ABSOLUTE MAN 80.16 K/mm3 (1.96-9.15); SEG NEUTROPHILS PERCENT MAN 60 % (41-73); TOTAL CELLS COUNTED 100
[2023-05-27 06:14] LABS: Anion Gap 20 mmol/L (6-16); Blood Urea Nitrogen 61 mg/dL (8-24); Bun/Creatinine Ratio 12.6 (12.0-20.0); CO2, Blood 18 mmol/L (21-32); Chloride, Blood 93 mmol/L (98-108); Creatinine, Blood 4.83 mg/dL (0.40-1.00); Glomerular Filtration Rate 9 (60-); Glucose, Blood 267 mg/dL (70-99); Magnesium, Blood 2.1 mg/dL (1.6-2.4); Phosphorus, Blood 7.6 mg/dL (2.5-4.9); Potassium, Blood 3.8 mmol/L (3.5-5.5); Sodium, Blood 131 mmol/L (136-145); Vancomycin, Random 23.4 ug/mL
--- NOTE | 2023-05-27 07:30 | NUR ---
DIALYSIS NOTE CCPD TX COMPLETED PRESCRIBED. IDRAIN 1796ML, TUF 424, AVG DWELL 1:11. PT TOLERATED WELL. TRANSFER SET CLOSED, CAPPED AND SECURE. REPORT GIVEN TO LUIS WOODARD
--- NOTE | 2023-05-27 07:38 | NUR ---
SHIFT SUMMARY: PT STARTED OUT THE SHIFT A&OX4 SHE WAS C/O A LITTLE ABD PAIN/NAUSEA AND REFUSED TO TAKE ANY ORAL MEDICATIONS OTHER THAN THE AMPHOJEL. SHE WAS REQUIRING 4 MGC/MIN OF LEVOPHED AND .O4 OF VASOPRESSION. THE NIGHT PROGRESSED SHE BECAME INREASINGLY HYPOTENSIVE REQUIRING MORE LEVOPHED TO MAINTAIN HER BLOOD PRESSURE. WHEN SHE GOT RAPIDLY WORSE AROUD 0200. OVERSEEING PHYSICIAL WAS CONTRACTED AND PLACED ORDERS FOR ALBUMIN. PT RESPONDED WELL TO ALBUMIN AND BLOOD PRESSURE MEDICATION WAS WEANED DOWN AGAIN. DURING HYPOTENSIVE EPISODE PT C/O NAUSEA AND HAD A DIFFICULT TIME REMEMBER WHERE SHE WAS. SHE NEVER HAD A LOC OR VOMITTED. BY THE END OF SHIFT SHE WAS ABLE TO SIT UP AND SWALLOW PILLS WITH OUT ANY N/V. DURING THIS EPISODE PT ALSO BECAME HYPOTHERMIC. SHE WAS WARMED USING A WARMING PAD AND RESPONDED WELL TO TREATMEN. PT IS CURRENTLY REQUIRING 10 MCG/MIN OF LEVOPHEDN AND .04 OF VASOPRESSION, BUT HAS HAD SIGNIFICANT IMPROVEMENT. DR. MARIN WAS AGAIN CONTACTED BECAUSE OF A CRITICAL WBC OF 89. PT CURRENTLY DENIES ANY DIZZINESS, N/V OR PAIN.
[2023-05-27 09:34] LABS: C DIFFICILE DNA POSITIVE (Negative)
--- NOTE | 2023-05-27 10:25 | NUR ---
Spiritual Care Visit. Pt. is awake in bed when arrive to visit. Pt. does not verbally respond to my greeting or my aatempt to re-establish rapport. Pt. displays evidence of communicating with nods or eye movement. Pt. welcomed prayer Prayed with Pt. Pt. displayed evidence of somnolence before I left the room.
--- NOTE | 2023-05-27 17:54 | NUR ---
SHIFT SUMMARY PT HAS REMAINED CONFUSED AND SOMNOLENT THROUGHOUT THE SHIFT. PT AWAKENS WITH PERIODS OF RESTLESSNESS AND ATTEMPTS TO PULL AT LINES/TUBES. PT UNABLE TO ANSWER QUESTIONS OR FOLLOW DIRECTIONS. DOBHOFF PLACED THIS MORNING DUE TO PT INABILITY TO SWALLOW MEDS. TF STARTED THIS AFTERNOON PER ORDERS. PICC TO JONO REMAINS IN PLACE WITH LEVOPHED TITRATED DOWN TO 4 MCG/MIN THIS SHIFT. NS INFUSING TKO AND BICARB AT 200 ML/HR. PD STARTED THIS EVENING, CATH REMAINS C/D/I. PT WITHOUT ANY VOIDS THIS SHIFT. PT WITH SOFT BLACK INCONTINENT BM THIS SHIFT. ATTENDS IN PLACE. VITAL SIGNS HAVE REMAINED STABLE. PT REMAINS ON 2L O2 NC. SBW RESTRAINTS IN PLACE. PT DAUGHTER AND OTHER FAMILY MEMBERS IN AND OUT THROUGHOUT THE SHIFT. WILL CONTINUE TO MONITOR AND REPORT OFF TO ONCOMING RN.
--- NOTE | 2023-05-27 18:20 | NUR ---
DIALYSIS-PD PT'S FAMILY LEFT DURING HOOKING PT TO PD. PT RESTRAINED AND CONFUSED. SHE IS NOW ISOLATION. CONTINUED WITH SAME TX PROGRAM AND ANTIBIOTICS. PT CONNECTED TO TX WITHOUT PROBLEMS AND PER PROTOCAL.
--- NOTE | 2023-05-27 20:12 | NUR ---
ASSUMED CARE AT 1900 PATIENT IS LETHARGIC, RESPONDS TO VERBAL STIMULI BUT CONFUSED AND MUMBLES RANDOM WORDS THEN GOES RIGHT BACK TO SLEEP. 02 SATS 95% ON 4L VIA NC, LS CLEAR. HR SR 90s, BP SOMEHWAT LABILE ON 4 MCG/MIN LEVOPHED, PO MIDODRINE GIVEN, CURRENTLY RECIEVING PD. INCONTINENT, ATTENDS IN PLACE. PATIENT REPOSITIONED. CALL LIGHT IN REACH. FAMILY WENT HOME AT START OF SHIFT.
[2023-05-28] VITALS (90 sets, daily range): BP systolic 64–164; BP diastolic 32–122
[2023-05-28 04:27] LABS: Hematocrit 25.1 % (33.0-51.0); Hemoglobin 8.8 g/dL (11.5-16.0); Mean Corpuscular HGB 29.9 pg (26.0-34.0); Mean Corpuscular HGB Conc 35.1 g/dL (31.5-36.5); Mean Corpuscular Volume 85 fL (80-100); Mean Platelet Volume 10.8 fL (9.1-12.4); NRBC ABSOLUTE 5.17 K/mm3 (0.00-0.02); NRBC Auto 8.3 /100 WBC (0.0-0.2); Platelet Count 157 K/mm3 (150-400); RDW Coefficient Variation 14.7 % (11.7-14.2); RDW Standard Deviation 45.3 fL (35.1-46.3); Red Blood Cell Count 2.94 M/mm3 (3.80-5.20)
[2023-05-28 04:46] LABS: White Blood Cell Count 62.47 K/mm3 (4.00-11.30)
[2023-05-28 04:49] LABS: Magnesium, Blood 1.7 mg/dL (1.6-2.4)
[2023-05-28 04:52] LABS: Albumin, Blood 1.4 g/dL (3.4-5.0); Anion Gap 11 mmol/L (6-16); Blood Urea Nitrogen 54 mg/dL (8-24); Bun/Creatinine Ratio 11.3 (12.0-20.0); CO2, Blood 26 mmol/L (21-32); Calcium, Blood 7.5 mg/dL (8.5-10.1); Chloride, Blood 94 mmol/L (98-108); Creatinine, Blood 4.76 mg/dL (0.40-1.00); Glomerular Filtration Rate 9 (60-); Glucose, Blood 254 mg/dL (70-99); Potassium, Blood 2.8 mmol/L (3.5-5.5); Sodium, Blood 131 mmol/L (136-145); Vancomycin, Random 20.1 ug/mL
[2023-05-28 04:57] LABS: Phosphorus, Blood 4.3 mg/dL (2.5-4.9)
[2023-05-28 05:28] LABS: BAND PERCENT MAN 15 % (0-8); BASOPHILS PERCENT MAN 0 % (0-2); EOSINOPHILS PERCENT MAN 0 % (0-6); LYMPHOCYTES ABSOLUTE MAN 1.24 K/mm3 (0.84-5.20); LYMPHOCYTES PERCENT MAN 2 % (21-46); METAMYELOCYTE ABSOLUTE MAN 1.87 K/mm3 (0.00-0.00); METAMYELOCYTE PERCENT MAN 3 % (0-0); MONOCYTES ABSOLUTE MAN 1.24 K/mm3 (0.16-1.47); MONOCYTES PERCENT MAN 2 % (4-13); MYELOCYTE ABSOLUTE MAN 3.74 K/mm3 (0.00-0.00); MYELOCYTE PERCENT MAN 6 % (0-0); NEUTROPHILS ABSOLUTE MAN 54.34 K/mm3 (1.96-9.15); SEG NEUTROPHILS PERCENT MAN 72 % (41-73); TOTAL CELLS COUNTED 100
[2023-05-28 06:03] LABS: PCO2 Arterial 28.2 mmHg (35-45); pH Blood Arterial 7.46 (7.35-7.45)
--- NOTE | 2023-05-28 07:30 | NUR ---
SHIFT SUMMARY PATIENT RESTED MOST THE NIGHT, MEDICATED FOR PAIN PRN PER EMAR. BECAME AGITATED AT APPROX 0500 THIS MORNING YELLING, KICKING AND TRYING TO PULL AT LINES/TUBES. UNABLE TO REDIRECT. CALLED DR. SAVAGE AND PRECEDEX ORDERED AND STARTED. PATIENT NOW CALM. LEVO REMAINS INFUSING. REPLACING CALCIUM AND POTASSIUM. DAUGHTER UPDATED ON PATIENT CONDITION. REPOSITIONED Q2 HOURS.
--- NOTE | 2023-05-28 12:55 | NUR ---
PD RN TO PT RM [id number] AT APPROX 0915AM TO D/C CCPD NIGHT TREATMENT. PT WAS RESTING IN BED, EYES CLOSED AND ASLEEP. FAMILY AT BEDSIDE. PT DID NOT RESPOND WHEN I COMMUNICATED WITH HER. I D/C PATIENT PD CATHETER FROM [employer] MACHINE AT APPRO 0930AM, EFFLUENT WAS CLEAR AND FREE OF FIRBINS, NO ALARMS WERE RECORDED. TOTAL UF WAS 1204ML, AVG DWELL WAS 1:11, ADDED DWELL WAS 0:10, I DRAIN WAS 2130ML.
--- NOTE | 2023-05-28 15:33 | NUR ---
Case Conference: Spoke with pt's daughter Gloria today, she states feeling positive that pt's WBC count is decreasing. She understands the patient remains on precedex and soft restraints, and v/u for the reasons. She states she is going to continue checking in daily and spending time with her mom, hopeful for improvement. She states feeling thankful to the team for their support and care of her mom. Palliative care will remain available.
--- NOTE | 2023-05-28 16:13 | NUR ---
PD RN TO PT RM ICU10 AT APPROX 1545 TO START PREPING PATIENT AND CYCLER FOR CCPD NIGHT TX. TELEPHONE STATION REPAIRER AND PRIMED, PT CONNECTED AT 1615. PT IS SITTING UP IN BED WITH DAUGHTER AT BEDSIDE. DAUGHTER EXPLAINS THAT MOTHER'S MENTAL STATUS HAS CHANGED SIGNIFICANTLY AND SHE IS VERY CONFUSED AND AGITATED THESE LAST LAST FEW DAYS. PT IS IN SOFT RESTRAIGNTS AND IS VERY RESTLESS DURING PROCEDURE, SHE YELLS OUT WITH MOANS AND GROANS DURING PROCEDURE. SHE STATES THAT SHE JUST DOESNT UNDERSTAND WHAT IS HAPPENING TO HER. STEPED IN TO DISCUSS THIS WITH THE DAUGHTER.
--- NOTE | 2023-05-28 18:05 | NUR ---
SHIFT SUMMARY PT HAS REMAINED CONFUSED THROUGHOUT THE SHIFT. PRECEDEX TITRATED OFF. PT MOANS OUT AND BECOMES RESTLESS WITH ANY STIMULI. PT IS NOT REDIRECTABLE OR ABLE TO ANSWERS QUESTIONS. PICC TO JONO REMAINS C/D/I. LEVOPHED INFUSING AT 4 MCG/MIN AND VASOPRESSIN AT 0.04 UNITS/MIN. PT BP LABILE THROUGHOUT THE SHIFT. SEE FLOWSHEET FOR TITRATIONS. VITAL SIGNS OTHERWISE STABLE. PT ON 2L O2 NC. DOBHOFF REMAINS IN PLACE WITH TF INFUSING AT GOAL RATE. PT WITH PD INFUSING AT THIS TIME. PT INCONTINENT OF LIQUID DARK BROWN STOOL THIS SHIFT. ATTENDS IN PLACE. SBW RESTRAINTS REMAIN IN PLACE. PT DAUGHTER AT BEDSIDE THIS EVENING. WILL CONTINUE TO MONITOR AND REPORT OFF TO ONCOMING RN.
--- NOTE | 2023-05-28 20:37 | NUR ---
ASSUMED CARE AT 1900 PATIENT ORIENTED TO NONE, SEDATED ON PRECEDEX. RESPONDS TO TOUCH, MOANS AND STARTS THRASHING. UNABLE TO REDIRECT. 02 SATS 96% ON 5L VIA NC, RR 12. HR SR 60s, BP LABILE ON LEVOPHED AND VASO. DOBHOFF WITH TF NEPRO AT GOAL RATE. ATTENDS IN PLACE. PATIENT REPOSITONED. CALL LIGHT IN REACH
[2023-05-29] VITALS (92 sets, daily range): BP systolic 79–163; BP diastolic 30–111
[2023-05-29 04:31] LABS: Hematocrit 28.3 % (33.0-51.0); Hemoglobin 9.8 g/dL (11.5-16.0); Mean Corpuscular HGB 29.9 pg (26.0-34.0); Mean Corpuscular HGB Conc 34.6 g/dL (31.5-36.5); Mean Corpuscular Volume 86 fL (80-100); Mean Platelet Volume 11.6 fL (9.1-12.4); NRBC ABSOLUTE 4.38 K/mm3 (0.00-0.02); NRBC Auto 9.9 /100 WBC (0.0-0.2); Platelet Count 108 K/mm3 (150-400); RDW Coefficient Variation 15.4 % (11.7-14.2); Red Blood Cell Count 3.28 M/mm3 (3.80-5.20); White Blood Cell Count 44.43 K/mm3 (4.00-11.30)
[2023-05-29 04:50] LABS: Magnesium, Blood 1.7 mg/dL (1.6-2.4)
[2023-05-29 04:51] LABS: Albumin, Blood 1.3 g/dL (3.4-5.0); Anion Gap 11 mmol/L (6-16); Blood Urea Nitrogen 50 mg/dL (8-24); Bun/Creatinine Ratio 10.7 (12.0-20.0); CO2, Blood 25 mmol/L (21-32); Calcium, Blood 7.5 mg/dL (8.5-10.1); Chloride, Blood 95 mmol/L (98-108); Creatinine, Blood 4.67 mg/dL (0.40-1.00); Glomerular Filtration Rate 9 (60-); Glucose, Blood 245 mg/dL (70-99); Potassium, Blood 2.9 mmol/L (3.5-5.5); Sodium, Blood 131 mmol/L (136-145)
[2023-05-29 04:54] LABS: BAND PERCENT MAN 6 % (0-8); BASOPHILS PERCENT MAN 0 % (0-2); EOSINOPHILS PERCENT MAN 0 % (0-6); LYMPHOCYTES ABSOLUTE MAN 1.33 K/mm3 (0.84-5.20); LYMPHOCYTES PERCENT MAN 3 % (21-46); METAMYELOCYTE ABSOLUTE MAN 1.33 K/mm3 (0.00-0.00); METAMYELOCYTE PERCENT MAN 3 % (0-0); MONOCYTES ABSOLUTE MAN 0.88 K/mm3 (0.16-1.47); MONOCYTES PERCENT MAN 2 % (4-13); MYELOCYTE ABSOLUTE MAN 0.88 K/mm3 (0.00-0.00); MYELOCYTE PERCENT MAN 2 % (0-0); NEUTROPHILS ABSOLUTE MAN 39.98 K/mm3 (1.96-9.15); SEG NEUTROPHILS PERCENT MAN 84 % (41-73); TOTAL CELLS COUNTED 100
--- NOTE | 2023-05-29 06:21 | NUR ---
SHIFT SUMMARY PATIENT REMAINS SEDATED ON PRECEDEX, CONFUSED AND VERY AGITATED WHEN STIMULTED, UNABLE TO REDIRECT. 02 SATS 100% ON 5L VIA NC, TITRATING OXYGEN BACK DOWN THIS AM. HR SR 70, BP LABILE, LEVOPHED AND VASO REMAIN INF. PD THROUGH THE NIGHT, NOW COMPLETE. ONE LIQUID BROWN/BALCK STOOL THIS SHIFT, LITTLE TO NO URINE OUT. PATIENT WOULD BE REPOSITIONED THEN SHIFT HERSELF BACK TO THE LEFT. REPLACING POTASSIUM AND CALCIUM THIS AM PER DR. MON[place]. MEDICATED FOR PAIN PER EMAR PRN. UPDATED DAUGHTER ON PATIENT CONDITION.
--- NOTE | 2023-05-29 07:00 | NUR ---
ASSUME CARE: I have assumed care of this patient.
--- NOTE | 2023-05-29 09:53 | NUR ---
PD RN TO PT RM ICU10 AT APPROX 0915AM TO DISCONNECT PT FROM CCPD NIGHT TX. SHE WAS IN THE MIDDLE OF SOME PT CARE WHEN I ENTERED, SHE WAS SITING UP IN BED VERY RESTLESS AND AGITATED. SHE WAS YELLING OUT AND MOANING AND GROANING. DISCONNECTED HER TX AT APPROX 0930AM AND EFFLUENT WAS CLEAR WITHOUT FIBRINS. TOTAL IDRAIN 2128ML, TOTAL UF 1297, AVG DWELL 1:06, LOST DWELL 0:13. LEFT THE ROOM WITH PATIENT DR AT BEDSIDE COMMUNICATING PLAN OF CARE WITH BEDSIDE RN.
--- NOTE | 2023-05-29 11:44 | NUR ---
EMESIS: Pt with bout of emesis. Tube feeds pauses. Provider notified.
--- NOTE | 2023-05-29 13:01 | NUR ---
STATUS CHANGE: Pt's SpO2 dropped to 70's with NRB in place. Sedation paused. RT and provider called. CPAP placed.
--- NOTE | 2023-05-29 14:12 | NUR ---
Spiritual Care Visit. Pt. had been agitated most of the past two days. Family are present at bedside and welcomed my visit. Family are actively bringing comfort to the Pt. After introductions and observations I prayed for the Pt. Pts. daughter and NOK verbalized gratitude for the prayer. Facilitated more conversation about the trajectory and transition of the Pts. condition. Daughter verbalized gratitude for the spiritual care visit. WIll remain available to Pt. and family.
--- NOTE | 2023-05-29 17:04 | NUR ---
PD RN TO PT RN ICU10 AT APPROX 1700 PM TO CONNECT PT TO CCPD NIGHT TREATMENT. PT SITTING UP IN CHAIR WITH 4-5 FAMILY MEMEBERS/FRIENDS VISITING. PT RN NOTIFIED OF PD TX READY TO BE CONNECTED. SHE RELAYED THIS MESSAGE TO FAMILY MEMBERS SO THEY COULD GIVE US A FEW MOMENTS TO GET HER TRANSPORTED BACK TO THE BED VIA LIFT. PT BACK IN BED AT APPROX 1710PM. PD DIRK SET UP AND PRIMED FOR CCPD TREATMENT. MACHINE READY AT APPROX 1730PM AND PT CONNECTED TO TREATMENT.
--- NOTE | 2023-05-29 17:05 | NUR ---
pt reviewed in rounds today. Having more pain and aggitation today. pt in restraints so she can keep oxygen on. Also concern for pulling her PD catheter. Review of medications with phsycians and prognosis with staff. Called dr frank about UF on PD last night he ordered fluid bolus. pt given neck pillow to help her tolerance of bipap and up to chair. Review of labs her albumin is 1.3. pt kps score is 40%. Will follow up with family. updated [facility] hospitalist. spoke with daughter to encourage her. She understands how sick she is and they may have to make some decisions if she keeps declining.
--- NOTE | 2023-05-29 17:48 | NUR ---
SHIFT SUMMARY: Pt up to chair for much of day. Pain managed much better with fentanyl this afternoon. Pt required CPAP for a short period this afternoon for hypoventilation. Once family was at bedside to continually redirect and sedation wore off, pt was much more alert, cooperative, and out of restraints for some time. Albumin and one liter bolus given this afternoon. Rectal tube became dislodged once pt was back in bed.
--- NOTE | 2023-05-29 20:00 | NUR ---
ASSUMED CARE OF PT AT 1900. REPORT RECEIVED AT BEDSIDE. PT PRESENTS IN BED. O2 ON AT 10 L/M PER HIGH FLOW NASAL CANNULA. O2 SATURATIONS MAINTAIN BETWEEN 85-88 PERCENT. PT HAS FAMILY AT BEDSIDE. DID TAKE CANNULA AND PLACE TO MOUTH WITH SATURATIONS IMPROVING TO 88-90 PERCENT. FAMILY HAVE LEFT FOR THE NIGHT. HAVE CHANGED PT TO VENTI MASK AT 10 L/M WHICH HAS IMPROVED PT TO 90-94 PERCENT SATURATION. WILL TITRATE APPROPRIATE. PT HAS INCREASED AGITATION SINCE FAMILY HAS LEFT. HAVE INCREASED PRECEDEX FROM 0.3 MCG'S/KG/HOUR TO 0.4 MCG'S. WILL MONITOR FOR ANY RESPIRATORY DEPRESSIONS WITH PRECEDEX ADJUSTMENT. PT DOES ON OCCASSION TRY TO SIT UP IN BED AND REACHES FOR HER TUBES AND OXYGEN. CURTAIN TO ROOM LEFT OPEN AND LIGHTING ADJUSTED TO ALLOW FOR CLOSE OBSERVANCE FROM THE NURSE'S DESK. WILL REVIEW CHART AND PLAN OF CARE FOR THIS PT.
[2023-05-30] VITALS (18 sets, daily range): BP systolic 58–128; BP diastolic 20–77
--- NOTE | 2023-05-30 00:36 | NUR ---
PT HAS BEEN MEDICATED TWICE WITH 25 MCG'S FENTANYL FOR ABDOMINAL PAIN. HAS REQUIRED PRECEDEX UP TO 0.5 MCG'S KG/HOUR. LEVOPHED TO 5 MCG'S/MIN. PT HAS BEEN INCONTINENT TO BROWN LOOSE STOOL. OPTED TO PLACE FLEXISHIELD. PT TOLERATES THIS FAIR. IMMEDIATE RETURN OF SAME LOOSE STOOL. PT HAS BEEN VERY ANXIOUS THIS EVENING WITH YELLING OUT. AFTER MEDICATION WITH 25 MCG'S FENTANYL, PT ABLE TO REST. WILL CONTINUE TO MONITOR PT.
--- NOTE | 2023-05-30 01:40 | NUR ---
PT ABLE TO REST FOR SHORT PERIODS AFTER BEING MEDICATED WITH 25 MCG'S FENTANYL. DOES HAVE UPPER AIRWAY SECRETIONS THAT HAVE SOME INFLUENCE ON SATURATIONS DECREASING. DID DO UPPER AIRWAY SUCTIONING THROUGH ORALPHARNX. DID OPT TO PLACE TRUMPET TO RIGHT NARE TO ASSIST IN OPEN AIRWAY. PT PLACED BACK TO CPAP AT 10 CM WITH FIO2 60 PERCENT. PT MAINTAINS 89-94 PERCENT SATURATIONS. PT HAS HAD FREQUENT EPISODES OF YELLING THROUGHOUT THE SHIFT. VERY RESTLESS. WHEN TURNED WILL NOT STAY IN ANY ONE POSITON. DIFFICULT TO REDIRECT PATIENT DURING THESE EPISODES OF INCREASED AGITATION AND ANXIOUSNESS. FLEXISEAL REMAINS INTACT. DRAINS DARK BROWN LIQUID STOOL. HAVE INCREASED PRECEDEX DRIP TO 0.7 MCG'S/KG/HOUR AND LEVOPHED BACK TO 6 MCG'S/MIN. PENDING RESULTS
--- NOTE | 2023-05-30 04:45 | NUR ---
REMOVE WRIST RESTRAINTS FROM PATIENT SECONDARY TO HER BECOMING MORE SOMNULENT. WITH RESTRAINTS REMOVED PT DOES NOT MAKE ANY ATTEMPTS TO REACH FOR TUBES. DID PLACE PRECEDEX DRIP TO STANDBY. HEART RATE HAS DECREASED TO 60'S-70'S. WILL MONITOR CLOSELY FOR NEED TO RESTART. FENTANYL 25 MCG'S AFFECTIVE TO DECREASE MOANING AND RESTLESSNESS.
[2023-05-30 05:09] LABS: Hematocrit 25.8 % (33.0-51.0); Hemoglobin 8.5 g/dL (11.5-16.0)
--- NOTE | 2023-05-30 05:30 | NUR ---
PT BEGINS TO HAVE DECREASING TIDAL VOLUMES WITH CPAP. MINIMAL LEAKS NOTED. TIDAL VOLUMES 200-275. RT TO ROOM TO EVALUATE. CALL MADE TO PT'S DAUGHTER WITH CONCERNS THAT PT NOT DOING WELL. RIKA TO COME IN
[2023-05-30 05:54] LABS: Albumin, Blood 1.4 g/dL (3.4-5.0); Anion Gap 16 mmol/L (6-16); Blood Urea Nitrogen 48 mg/dL (8-24); Bun/Creatinine Ratio 10.6 (12.0-20.0); CO2, Blood 17 mmol/L (21-32); Calcium, Blood 7.2 mg/dL (8.5-10.1); Chloride, Blood 100 mmol/L (98-108); Creatinine, Blood 4.52 mg/dL (0.40-1.00); Glomerular Filtration Rate 9 (60-); Glucose, Blood 233 mg/dL (70-99); Phosphorus, Blood 5.1 mg/dL (2.5-4.9); Potassium, Blood 3.8 mmol/L (3.5-5.5); Sodium, Blood 133 mmol/L (136-145)
--- NOTE | 2023-05-30 06:21 | NUR ---
AT 0554: PT NOTED TO BE WITHOUT RESPIRATIONS, AND WITHOUT PULSE FOR A TIME EXPANSE OF > 1 MINUTE. TIME OF VERIFIED BY BAR PILOTGOLDY. PER CHARGE. NO PULSE NO BREATHS. TIME OF CALLED AT 0554. RUBÉN ARAGON, HOSPITALIST BILLY LUO, AND DR DOUGLASS, AND [employer]ICE.
--- NOTE | 2023-05-30 07:06 | NUR ---
"Spiritual Care Call Back | EOL Pt. had passed when called back at the families request. This radiation control health physicist was acquainted with the Pt. and family. Pastoral care is given. Prayed a blessing over the Pt. and supportive prayer for the family. EOL Education is given. Family has no home preference. No other family is expected to visit. Family verbalized gratitude for the spiritual care visit."
--- NOTE | 2023-05-30 08:55 | NUR ---
TO ICU 10 FOR DISCONTINUATION OF PD. PT ALREADY DISCONNECTED BY PRIMARY RN EARLIER @ APPROX 0600. PT @ 0554. THIS RN NOTIFIED BY PRIMARY COMPOSITION STONE APPLICATOR EARLIER THIS AM. EQUIPMENT REMOVED FROM ROOM AND CLEANED PER PROTOCOL. SELWYN
== END 2023-05-30 05:54 | DRG 377 ==
LOC: ER 15:38 → ICUE 17:38 → MEDS 17:38 → ICUE 19:15 → MEDS 05-21 19:23 → ICUE 05-22 00:13
PROVIDERS: Emergency Medicine; Internal Medicine Critical Care Medicine; Internal Medicine Gastroenterology; Internal Medicine Nephrology; Nurse Practitioner Acute Care; ADMIT Family Medicine
PROC: 0DJ08ZZ Inspection of Upper Intestinal Tract, Via Natural or Artificial Opening Endoscopic (ICD-10-PCS; 2023-05-19)
PROC: 30233N1 Transfusion of Nonautologous Red Blood Cells into Peripheral Vein, Percutaneous Approach (ICD-10-PCS; 2023-05-19)
PROC: 5A1D70Z Performance of Urinary Filtration, Intermittent, Less than 6 Hours Per Day (ICD-10-PCS; 2023-05-20)
PROC: 0W3P8ZZ Control Bleeding in Gastrointestinal Tract, Via Natural or Artificial Opening Endoscopic (ICD-10-PCS; principal; 2023-05-20 07:00)
PROC: 3E033XZ Introduction of Vasopressor into Peripheral Vein, Percutaneous Approach (ICD-10-PCS; 2023-05-24)
PROC: 3E03329 Introduction of Other Anti-infective into Peripheral Vein, Percutaneous Approach (ICD-10-PCS; 2023-05-24)
PROC: 4A033R1 Measurement of Arterial Saturation, Peripheral, Percutaneous Approach (ICD-10-PCS; 2023-05-28)
DX: K31.811 Angiodysplasia of stomach and duodenum with bleeding (principal); A41.9 Sepsis, unspecified organism; N18.6 End stage renal disease; R65.21 Severe sepsis with septic shock; K65.9 Peritonitis, unspecified; Z66 Do not resuscitate; I12.0 Hypertensive chronic kidney disease with stage 5 chronic kidney disease or end stage renal disease; E27.40 Unspecified adrenocortical insufficiency; N17.9 Acute kidney failure, unspecified; D62 Acute posthemorrhagic anemia; N25.81 Secondary hyperparathyroidism of renal origin; E87.20 Acidosis, unspecified; A04.72 Enterocolitis due to Clostridium difficile, not specified as recurrent; E86.1 Hypovolemia; E88.09 Other disorders of plasma-protein metabolism, not elsewhere classified; M10.9 Gout, unspecified; I95.9 Hypotension, unspecified; E03.9 Hypothyroidism, unspecified; E78.5 Hyperlipidemia, unspecified; G89.29 Other chronic pain; M54.9 Dorsalgia, unspecified; E87.6 Hypokalemia; M19.90 Unspecified osteoarthritis, unspecified site; F41.9 Anxiety disorder, unspecified; F32.A Depression, unspecified; G25.81 Restless legs syndrome; R73.9 Hyperglycemia, unspecified; T38.0X5A Adverse effect of glucocorticoids and synthetic analogues, initial encounter; E83.51 Hypocalcemia; Z11.52 Encounter for screening for COVID-19; Z99.2 Dependence on renal dialysis; Z87.891 Personal history of nicotine dependence; Z79.890 Hormone replacement therapy; Z79.52 Long term (current) use of systemic steroids; Z86.010 Personal history of colon polyps; Z87.19 Personal history of other diseases of the digestive system
CPT/HCPCS: 0241U; 36415; 36430; 36569; 36600; 51702; 71045; 71250; 74018; 74022; 74176; 74177; 80047; 80053; 80069; 80074; 80202; 81001; 82140; 82248; 82330; 82803; 82947; 83690; 83735; 84100; 84132; 84439; 84443; 84478; 85007; 85014; 85018; 85025; 85027; 85060; 85610; 85730; 86850; 86900; 86901; 86920; 87040; 87070; 87075; 87086; 87205; 87324; 87493; 89051; 93005; 93010; 94660; 94760; 94762; 96365; 96366; 96375; 96376; 97110; 97116; 97162; 97165; 97530; 97535; 99285-25; A9270; C1751; C9113; J0171; J0612; J0690; J0692; J0713; J0881; J1430; J1644; J1720; J1815; J2001; J2185; J2270; J2371; J2405; J2543; J2704; J2765; J3010; J3370; J3475; J3480; J7030; J7040; J7050; J7060; J7070; J7120; J7131; P9016; P9045; P9047; Q9967